=== PATIENT | male | born 1965 | race American Indian/Alaskan Native ===

== ENCOUNTER 2020-12-19 10:54 | Inpatient (IN) | payer MEDICAID, SELFPAY ==
[2020-12-19] VITALS (10 sets, daily range): BP systolic 109–147; BP diastolic 60–92; PULSE 64–89; RESP 11–19; TEMP 36.7–37.1; O2SAT 97–99; BMI 32.5; BMI 30.2
--- NOTE | 2020-12-19 | ECG_ITS ---
Test Reason : CHEST PAIN Blood Pressure : / mmHG Vent. Rate : 079 BPM Atrial Rate : 079 BPM P-R Int : 154 ms QRS Dur : 088 ms QT Int : 382 ms P-R-T Axes : 041 -18 027 degrees QTc Int : 438 ms Normal sinus rhythm Normal ECG No previous ECGs available Referred By: Dangelo Nunez Electronically Signed By:SELAM MARRERO
--- NOTE | ~2020-12-19 | XR_ITS ---
EXAMINATION: XR CHEST CLINICAL INFORMATION: Chest pain COMPARISON: None TECHNIQUE: Frontal view of the chest was obtained. FINDINGS: No significant abnormality is noted involving the heart, lungs, mediastinum, bony thorax or soft tissues. XR/XR chest 1V IMPRESSION: Unremarkable examination.
--- NOTE | 2020-12-19 13:04 | ED.CHESTPAIN ---
HPI - Chest Pain General Chief Complaint: Chest Pain Stated Complaint: chest pain Time Seen by Provider: 12/19/20 13:04 Source: patient Mode of arrival: ambulatory Limitations: no limitations History of Present Illness HPI narrative: over the past few weeks he has noticed throat tightness with exertion. Today he has chest tightness on and off for a few minutes complaint: chest pain and chest heaviness Onset (ago): minute(s) Timing of current episode: episodic Prior episodes: No Onset: during exertion Pain location: left chest Pain radiation: left arm and neck Severity: mild Quality: tightness Relieving factors: rest Exacerbating factors: exertion Associated symptoms: dyspnea Treatment prior to arrival: none Risk Factors Coronary artery disease risk factors: hypertension and family history of CAD before age 50 Related Data Home Medications Medication Instructions Recorded Confirmed No Known Home Meds 12/19/20 12/19/20 Allergies Allergy/AdvReac Type Severity Reaction Status Date / Time No Known Allergies Allergy Verified 12/19/20 11:02 Review of Systems Constitutional: Constitutional: Reports no additional constitutional complaints Eyes: Eyes: Reports no additional eye complaints ENT: Denies dizziness Cardiovascular: Cardiovascular: Reports no additional cardiovascular complaints Respiratory: Respiratory: Reports as per HPI Gastrointestinal: Gastrointestinal: Reports no additional gastrointestinal complaints Musculoskeletal: Musculoskeletal: Reports no additional musculoskeletal complaints Integumentary/Breasts: Skin/Breast: Denies rash Neurologic: Reports system reviewed and no additional complaints, except as documented, Denies dizziness and Denies Sensory deficit (Neuro) Psychiatric: Psychiatric: Denies anxiety PMFSH Past Medical History Medical History Asthma High blood pressure Social History Social History Smoked in Last 30 Days: No Use of substances other than those prescribed or required for medical reasons: No Advance Directives: No Advance Directives Information Provided: No Physical Exam Vital Signs: Vital Signs: Last Vital Signs Temp 98.0 F 12/19/20 10:58 Pulse 80 12/19/20 15:27 Resp 12 12/19/20 15:27 BP 147/84 H 12/19/20 15:27 Pulse Ox 98 12/19/20 15:27 Body Mass Index 30.2 Const: General: healthy appearing Nutritional Appearance: average body habitus Orientation/consciousness: oriented to person and patient oriented x3 Limitations: no limitations HENMT: Head: Yes normal to inspection Ears: external ears normal General nose exam: Normal external nose present Mouth: Normal oral and palatal mucosa present and oropharynx normal Throat: Yes posterior oropharynx normal Eyes: General: appearance normal, both eyes and all related structures Neck: Other: supple Neck: Yes normal visual inspection Chest: Chest palpation & inspection: normal inspection of the chest Resp: Auscultation: clear to auscultation bilaterally Cardio: Jugular venous distension: no JVD Rate: regular rate Rhythm: regular rhythm Heart sounds: S1 normal heart sound present and S2 normal heart sound present GI: Inspection: Yes normal to inspection Palpation (GI): Soft to palpation, nontender and No hepatosplenomegaly present Auscultation: normal bowel sounds : General: Yes no CVA tenderness Back/Spine/Pelvis: Back: no CVA tenderness Skin: General skin exam: no rashes or lesions noted Neuro: General: oriented to person and patient oriented x3 Cranial nerves: Yes CN's II-XII intact bilaterally Motor exam (neuro): 5/5 motor strength present throughout Sensory Exam: No Sensory deficit (Neuro) Extrem: General: Yes normal to inspection Psych: Appearance: grossly normal Course Course Course Narrative: positive troponin with a good story but normal EKG will admit MDM - Chest Pain Lab Data Result diagrams: 12/19/20 13:35 12/19/20 14:18 Labs: Lab Results 12/19/20 12/19/20 12/19/20 Range/Units 13:35 13:35 14:18 WBC 12.8 H (4.8-10.8) X10*3/uL RBC 5.40 (4.60-5.80) X10*6/uL Hgb 15.9 (14.0-18.0) g/dl Hct 46.9 (42-52) % MCV 86.9 (80-98) fL MCH 29.4 (27.0-33.0) pg MCHC 33.9 (31.0-36.0) g/dl RDW 11.9 (11.0-16.0) % Plt Count 212 (160-400) X10*3/uL MPV 10.1 (9.4-12.4) fL Immature Gran % (Auto) 0.4 (0.0-0.4) % Neut % (Auto) 86.0 H (45-73) % Lymph % (Auto) 9.5 L (20-40) % Spink % (Auto) 3.0 (2-11) % Eos % (Auto) 0.8 (0-4) % Baso % (Auto) 0.3 (0-2) % Lymph # (Auto) 1.2 (1.2-4.9) X10*3/uL Spink # (Auto) 0.4 (0.1-1.2) X10*3/uL Eos # (Auto) 0.1 (0.0-0.4) X10*3/uL Baso # (Auto) 0.0 (0.0-0.2) X10*3/uL Abs Immat Gran (auto) 0.05 H (0.00-0.03) X10*3/uL Absolute Neuts (auto) 11.0 H (2.0-8.3) X10*3/uL Absolute Nucleated RBC 0.000 (0.0-0.012) X10*3/uL Nucleated RBC % (auto) 0.0 (0.0-0.2) /100WBC Sodium 140 (135-145) mmol/L Potassium 4.7 (3.3-5.1) mmol/L Chloride 104 (96-108) mmol/L Carbon Dioxide 27 (22-29) mmol/L Anion Gap 14 (12-20) BUN 12 (9-16) mg/dL Creatinine 0.95 (0.5-1.4) mg/dL Estim Creat Clear Calc 104.7 Estimated GFR > 60 Random Glucose 105 (60-115) mg/dL Calcium 9.6 (8.4-10.2) mg/dL Troponin I High Sens 109.1 H (<3.5-35.0) ng/L ECG Data ECG #1: Attestation: I personally reviewed and interpreted this ECG as follows: Interpretation: normal sinus rhythm no st or twave changes Discharge Plan Discharge Clinical Impression: Non-ST elevated myocardial infarction (non-STEMI) Chest pain Qualifiers: Chest pain type: precordial pain Qualified Code(s): R07.2 - Precordial pain Patient Disposition: Admitted As Inpatient
[2020-12-19] MEDS: Nitroglycerin 2 % Oint 1 GM Packet 1 INCH TRANSDERMA (13:36)
[2020-12-19] MEDS: Aspirin Enteric Coated 81 MG TABLET.DR 162 MG PO (13:36)
[2020-12-19 13:40] LABS: MANUAL DIFF FLAG NO
[2020-12-19 13:44] LABS: Basophils Percent Auto 0.3 % (0-2); Eosinophils Absolute Auto 0.1 X10*3/uL (0.0-0.4); Eosinophils Percent Auto 0.8 % (0-4); Hematocrit 46.9 % (42-52); Hemoglobin 15.9 g/dl (14.0-18.0); Imm Gran Abs Auto 0.05 X10*3/uL (0.00-0.03); Imm Gran Pct Auto 0.4 % (0.0-0.4); Lymphocytes Absolute Auto 1.2 X10*3/uL (1.2-4.9); Lymphocytes Percent Auto 9.5 % (20-40); Mean Corpuscular HGB Conc 33.9 g/dl (31.0-36.0); Mean Corpuscular Hemoglobin 29.4 pg (27.0-33.0); Mean Corpuscular Volume 86.9 fL (80-98); Mean Platelet Volume 10.1 fL (9.4-12.4); Monocytes Absolute Auto 0.4 X10*3/uL (0.1-1.2); Platelet Count 212 X10*3/uL (160-400); Red Cell Distribution Width 11.9 % (11.0-16.0); White Blood Count 12.8 X10*3/uL (4.8-10.8)
[2020-12-19 14:21] LABS: Troponin-I High Sensitivity 109.1 ng/L (<3.5-35.0)
--- NOTE | 2020-12-19 14:27 | PC.NURSE ---
PATIENT REPORTS RELIEF OF PAIN AFTER NITRO PATCH APPLIED.
[2020-12-19 14:51] LABS: Anion Gap 14 (12-20); Blood Urea Nitrogen 12 mg/dL (9-16); Calcium 9.6 mg/dL (8.4-10.2); Carbon Dioxide 27 mmol/L (22-29); Chloride 104 mmol/L (96-108); Creatinine Clr Calc Pharmacy 104.7; Estimated Glomerular Filt Rate > 60; Glucose Random 105 mg/dL (60-115); Potassium 4.7 mmol/L (3.3-5.1); Sodium 140 mmol/L (135-145)
[2020-12-19 15:57] LABS: INTERNATIONAL NORM RATIO 1.1 (0.9-1.1); Prothrombin Time 12.9 SEC (10.8-13.0)
[2020-12-19 16:00] LABS: PTT Heparin Drip 34.6 SEC (53-77.9)
[2020-12-19] MEDS: Heparin Sodium,Porcine 5,000 UNIT/ML VIAL 8000 UNIT IVPUSH (16:08)
[2020-12-19] MEDS: 0.9 % Sodium Chloride Flush 3 ML SYRINGE IVFLUSH (16:08)
[2020-12-19] MEDS: Heparin Sodium,Porcine/1/2NS 25,000 UNIT/250 ML IV.SOLN 13.02 UNIT IVCONT (16:13)
[2020-12-19 16:14] LABS: COVID-19 Test Negative (Negative)
[2020-12-19 17:17] LABS: Troponin-I High Sensitivity 239.3 ng/L (<3.5-35.0)
--- NOTE | 2020-12-19 18:50 | HP_ITS ---
DATE OF SERVICE: 12/19/2020 CHIEF COMPLAINT: Chest pain. HISTORY OF PRESENT ILLNESS: 54-year-old gentleman with past medical history significant for hypertension and asthma, presented to [facility] due to symptoms of chest pain, intermittent with exertion associated with shortness of breath, diaphoresis, and near syncope. Pain would relieve with rest. This morning, the patient had another episode of chest pain with radiation to neck, associated with left arm heaviness, sensation of cold and sweaty; therefore, came to the emergency room, where he was given 2 aspirin and nitroglycerin paste, and pain resolved. An EKG showed normal sinus rhythm, normal EKG. However, patient's troponin is elevated at 109. Due to chest pain significant for coronary artery disease and elevated troponin, the patient is now being admitted to [facility] for continued monitoring and treatment. PAST MEDICAL HISTORY: Significant for hypertension and diabetes. PAST SURGICAL HISTORY: None. FAMILY HISTORY: Father had coronary artery disease, not aware of what age. Mother has stomach cancer. No other family member with premature coronary artery disease. SOCIAL HISTORY: The patient lives at home with his spouse. 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 Denies smoking or alcohol abuse. MEDICATIONS: The patient is not taking any medications. He has not seen a PCP since 2019. ALLERGIES: NO KNOWN DRUG ALLERGIES. PHYSICAL EXAMINATION: GENERAL: The patient is resting comfortably. VITALS: BP 147/84 with a pulse of 80, respiratory rate 12, O2 saturation 98% on room air. HEENT: Pupils equal, round, and reactive to light and accommodation. Extraocular muscles intact. NECK: Supple. No JVD. LUNGS: Clear to auscultation. HEART: Regular rate and rhythm with no murmur, regurg, or gallop. ABDOMEN: Soft, nontender. EXTREMITIES: Without edema. NEUROLOGIC: Nonfocal. PSYCH: Appropriate affect. SKIN: No rashes. LABORATORY DATA: Sodium 140, potassium 4.7, creatinine of 0.95, [place] [address], hematocrit of 46.9. Chest x-ray showed no acute infiltrate. EKG showed normal sinus rhythm. No previous EKGs for comparison. ASSESSMENT AND PLAN: This is a 54-year-old gentleman, who presented to [facility] with 2 days of intermittent chest pain with exertion associated with shortness of breath, diaphoresis, near syncope, and today presented with chest pain with radiation to left arm with heaviness, sensation of cold. The patient's chest pain resolved with aspirin and nitroglycerin in the ER. 1. Chest pain. chest pain is typical for coronary artery disease with elevated troponin consistent with [id number] elevation myocardial infarction, patient will be placed on IV heparin drip, aspirin, beta-blockers, and statin, will obtain lipid profile and echocardiogram, will obtain cardiology consultation for further evaluation and treatment. 2. Hypertension. Patient's blood pressure is elevated. The patient has not taken medication in the last couple of years. Will be placed on metoprolol and follow blood pressure closely. 3. Code status, full code. 4. Deep vein thrombosis prophylaxis, patient on heparin. MD BLANKA Wells/LISSETT / [id number] MTDD
--- NOTE | 2020-12-19 19:03 | PC.NURSE ---
Received report from ALFREDO Lehman. Fallon attempted to call [facility] to give RN to RN report, but room isnt ready
--- NOTE | 2020-12-19 20:10 | PC.NURSE ---
Report given to ALFREDO Salomon. Preparing for transfer to [facility] room 454.
[2020-12-19 20:52] LABS: Troponin-I High Sensitivity 467.1 ng/L (<3.5-35.0)
[2020-12-19] MEDS: Metoprolol Tartrate 25 MG TABLET PO (21:25)
[2020-12-19] MEDS: Atorvastatin Calcium 80 MG TABLET PO (21:25)
[2020-12-19 22:44] LABS: PTT Heparin Drip > 200.0 SEC (53-77.9)
[2020-12-20] MEDS: 0.9 % Sodium Chloride Flush 3 ML SYRINGE IVFLUSH (00:14)
[2020-12-20 00:15] LABS: PTT Heparin Drip > 200.0 SEC (53-77.9)
[2020-12-20 00:26] LABS: Anion Gap 13 (12-20); Blood Urea Nitrogen 13 mg/dL (9-16); Calcium 9.2 mg/dL (8.4-10.2); Carbon Dioxide 21 mmol/L (22-29); Chloride 108 mmol/L (96-108); Estimated Glomerular Filt Rate > 60; Glucose Random 132 mg/dL (60-115); Magnesium 2.3 mg/dL (1.6-2.6); Sodium 138 mmol/L (135-145)
[2020-12-20 02:09] LABS: PTT Heparin Drip 86.4 SEC (53-77.9)
[2020-12-20 03:37] VITALS: BP 110/63; PULSE 66; RESP 18; TEMP 37.1; O2SAT 98
[2020-12-20 06:50] LABS: Cholesterol 192 mg/dL; HDL Cholesterol 41 mg/dL; LDL Cholesterol Calculated 139 mg/dl; Triglycerides 62 mg/dL
[2020-12-20 07:45] VITALS: BP 131/74; PULSE 69; RESP 18; TEMP 36.3; O2SAT 97
[2020-12-20 08:03] VITALS: BP 131/74; PULSE 69
[2020-12-20] MEDS: Metoprolol Tartrate 25 MG TABLET PO (08:03)
[2020-12-20] MEDS: Aspirin Enteric Coated 81 MG TABLET.DR PO (08:03)
[2020-12-20 08:48] LABS: PTT Heparin Drip 93.3 SEC (53-77.9)
--- NOTE | 2020-12-20 09:42 | MHC.CM.PN ---
CM met with Patient at bedside. Patient indicates that he is being transferred to [facility] today for a Cardiac Cath. Patient lives in an apartment with his Girlfriend and he is functionally independent. Patient's new PCP is Dr. Zo Solis and 1st PCP appointment is on 01/22/21.CM has initiated and will follow for dc planning.
--- NOTE | 2020-12-20 10:10 | P.CONCA_ITS ---
History of Present Illness History of Present Illness Date of Service: 12/20/20 Consult reason: chest pain and troponin elevation Chief complaint: chest pain,nstemi Narrative: This is a cardiology consultation regarding chest pain and elevated troponins. Patient does not have any known coronary disease or myocardial infarction or in fact any other cardiac issues. He states that he has been having chest pains for the last 3-4 days time. Initially to happen about 4 days or so ago. At that time he was having a discomfort in the neck. Then it got better for couple days. Then he started having again some chest discomfort more so in the left side of the chest. He was also having discomfort in the left arm and neck area. He was sweaty. He was also having pres-syncopal episode. This led to the hospitalization and he has been found to have elevated troponins suggestive of non ST elevation myocardial infarction. He denies any history of smoking or diabetes or hypertension. Review of Systems Review of Systems: Yes all other systems are reviewed and are negative Cardiovascular: Cardiovascular: Reports as per HPI, Reports no additional cardiovascular complaints, Denies acrocyanosis, Denies cool extremities, Denies painful fingertips, Denies chest pain, Denies chest pain at rest, Denies diaphoresis, Denies syncope, Denies irregular heart rhythm, Denies claudication, Denies leg edema, Denies lightheadedness, Denies palpitations and Denies dyspnea Respiratory: Respiratory: Denies dyspnea Neurologic: Denies syncope Endocrine: Endocrine: Denies palpitations PMF Past Medical History Medical History Asthma High blood pressure Social History Social History Household Members: Significant Other Housing: Apartment Do you presently have visiting nurse or other home services: No Smoking Status: Never smoker Smoked in Last 30 Days: No Second Hand Smoke Exposure: No Use of substances other than those prescribed or required for medical reasons: No Currently Displaying Signs/Symptoms of Drug Intoxication Withdrawal: No Have you been hit, kicked, punched, or otherwise hurt by someone within the past year? If so, by whom?: No Do you feel safe in your current relationship?: Yes Is there a partner from a previous relationship who is making you feel unsafe now?: No Are you made to feel afraid or neglected: No Advance Directives: No Advance Directives Information Provided: No Do you have thoughts of harming others: None Do you have a plan to hurt others: No Plan Nutrition Risks: No Nutritional Risk service: No Current occupational status: employed Meds Allergies Allergy/AdvReac Type Severity Reaction Status Date / Time No Known Allergies Allergy Verified 12/19/20 11:02 Active Medications: Current Medications Generic Name Dose Route Start Last Admin Trade Name Makenzie PRN Reason Stop Dose Admin Acetaminophen 650 mg 12/19/20 15:37 Acetaminophen 325 Mg Tablet PO Q6H PRN Pain, Mild (Pain Scale 1-3) Aspirin 81 mg 12/20/20 09:00 12/20/20 08:03 Aspirin Enteric Coated 81 Mg Tablet.Dr PO 81 mg DAILY KYLER Administration Atorvastatin Calcium 80 mg 12/19/20 21:00 12/19/20 21:25 Atorvastatin Calcium 80 Mg Tablet PO 80 mg BEDTIME KYLER Administration Heparin Sodium/Sodium Chloride 25,000 unit in 250 mls @ 0 mls/hr 12/19/20 15:45 12/20/20 08:55 IVCONT 0 units/kg/hr .Q0M KYLER 0 mls/hr Titration Protocol Per Protocol Metoprolol Tartrate 25 mg 12/19/20 21:00 12/20/20 08:03 Metoprolol Tartrate 25 Mg Tablet PO 25 mg BID KYLER Administration Protocol Nitroglycerin 0.4 mg 12/19/20 15:37 Nitroglycerin 0.4 Mg Tab.Subl SUBLINGUAL Q5M PRN Chest Pain Ondansetron HCl 4 mg 12/19/20 15:37 Ondansetron Hcl 4 Mg/2 Ml Vial IVPUSH Q8H PRN Nausea and Vomiting Sodium Chloride 3 ml 12/19/20 16:00 12/20/20 07:11 0.9 % Sodium Chloride Flush 3 Ml Syringe IVFLUSH Not Given QSHIFT [facility] Home Medications Medication Instructions Recorded Confirmed Last Taken Type No Known Home Meds 12/19/20 12/19/20 Unknown History Physical Exam Vital Signs: Vital Signs: Last Vital Signs Temp 97.4 F 12/20/20 07:45 Pulse 69 12/20/20 08:03 Resp 18 12/20/20 07:45 BP 131/74 12/20/20 08:03 Pulse Ox 97 12/20/20 07:45 Body Mass Index 30.2 Const: General: cooperative, comfortable and no acute distress Orientation/consciousness: patient oriented x3 HENMT: Other: Unremarkable Neck: Neck: Yes normal visual inspection Chest: Chest palpation & inspection: normal inspection of the chest Resp: Auscultation: clear to auscultation bilaterally, no crackles and no wheezes Cardio: Jugular venous distension: no JVD Palpation: normal PMI Heart sounds: S1 normal heart sound present, S2 normal heart sound present, no gallops, no murmurs and no rubs GI: Palpation (GI): Soft to palpation Back/Spine/Pelvis: Other: unremarkable Skin: General skin exam: no rashes or lesions noted Neuro: General: patient oriented x3 Extrem: General: Yes no clubbing, cyanosis or edema Psych: Mental Status: mental status grossly normal Results Labs and Meds Result diagrams: 12/19/20 13:35 12/19/20 23:39 Lab results: Laboratory Results - last 24 hr 12/19/20 12/19/20 12/19/20 13:35 13:35 14:18 WBC 12.8 H RBC 5.40 Hgb 15.9 Hct 46.9 MCV 86.9 MCH 29.4 MCHC 33.9 RDW 11.9 Plt Count 212 MPV 10.1 Immature Gran % (Auto) 0.4 Neut % (Auto) 86.0 H Lymph % (Auto) 9.5 L Harlan % (Auto) 3.0 Eos % (Auto) 0.8 Baso % (Auto) 0.3 Lymph # (Auto) 1.2 Harlan # (Auto) 0.4 Eos # (Auto) 0.1 Baso # (Auto) 0.0 Abs Immat Gran (auto) 0.05 H Absolute Neuts (auto) 11.0 H Absolute Nucleated RBC 0.000 Nucleated RBC % (auto) 0.0 PT INR PTT (Heparin Protocol) Sodium 140 Potassium 4.7 Chloride 104 Carbon Dioxide 27 Anion Gap 14 BUN 12 Creatinine 0.95 Estim Creat Clear Calc 104.7 Estimated GFR > 60 Random Glucose 105 Calcium 9.6 Magnesium Troponin I High Sens 109.1 H Triglycerides Cholesterol LDL Cholesterol, Calc HDL Cholesterol COVID-19 (GIA) COVID-19 Clin Com 12/19/20 12/19/20 12/19/20 15:40 15:41 16:26 WBC RBC Hgb Hct MCV MCH MCHC RDW Plt Count MPV Immature Gran % (Auto) Neut % (Auto) Lymph % (Auto) Harlan % (Auto) Eos % (Auto) Baso % (Auto) Lymph # (Auto) Harlan # (Auto) Eos # (Auto) Baso # (Auto) Abs Immat Gran (auto) Absolute Neuts (auto) Absolute Nucleated RBC Nucleated RBC % (auto) PT 12.9 INR 1.1 PTT (Heparin Protocol) 34.6 L Sodium Potassium Chloride Carbon Dioxide Anion Gap BUN Creatinine Estim Creat Clear Calc Estimated GFR Random Glucose Calcium Magnesium Troponin I High Sens 239.3 H D Triglycerides Cholesterol LDL Cholesterol, Calc HDL Cholesterol COVID-19 (GIA) Negative COVID-19 Clin Com See Note 12/19/20 12/19/20 12/19/20 20:14 22:10 23:39 WBC RBC Hgb Hct MCV MCH MCHC RDW Plt Count MPV Immature Gran % (Auto) Neut % (Auto) Lymph % (Auto) Harlan % (Auto) Eos % (Auto) Baso % (Auto) Lymph # (Auto) Harlan # (Auto) Eos # (Auto) Baso # (Auto) Abs Immat Gran (auto) Absolute Neuts (auto) Absolute Nucleated RBC Nucleated RBC % (auto) PT INR PTT (Heparin Protocol) > 200.0 H* D Sodium 138 Potassium 4.0 Chloride 108 Carbon Dioxide 21 L Anion Gap 13 BUN 13 Creatinine 0.89 Estim Creat Clear Calc 108.0 Estimated GFR > 60 Random Glucose 132 H Calcium 9.2 Magnesium 2.3 Troponin I High Sens 467.1 H D Triglycerides Cholesterol LDL Cholesterol, Calc HDL Cholesterol COVID-19 (GIA) COVID-[employer] ([employer]) 12/19/20 12/20/20 12/20/20 23:39 00:36 01:39 WBC RBC Hgb Hct MCV MCH MCHC RDW Plt Count MPV Immature Gran % (Auto) Neut % (Auto) Lymph % (Auto) Harlan % (Auto) Eos % (Auto) Baso % (Auto) Lymph # (Auto) Harlan # (Auto) Eos # (Auto) Baso # (Auto) Abs Immat Gran (auto) Absolute Neuts (auto) Absolute Nucleated RBC Nucleated RBC % (auto) PT INR PTT (Heparin Protocol) > 200.0 H* 149.1 H* D 86.4 H D Sodium Potassium Chloride Carbon Dioxide Anion Gap BUN Creatinine Estim Creat Clear Calc Estimated GFR Random Glucose Calcium Magnesium Troponin I High Sens Triglycerides Cholesterol LDL Cholesterol, Calc HDL Cholesterol COVID-19 (GIA) COVID-19 [employer] Com 12/20/20 12/20/20 05:33 08:10 WBC RBC Hgb Hct MCV MCH MCHC RDW Plt Count MPV Immature Gran % (Auto) Neut % (Auto) Lymph % (Auto) Harlan % (Auto) Eos % (Auto) Baso % (Auto) Lymph # (Auto) Harlan # (Auto) Eos # (Auto) Baso # (Auto) Abs Immat Gran (auto) Absolute Neuts (auto) Absolute Nucleated RBC Nucleated RBC % (auto) PT INR PTT (Heparin Protocol) 93.3 H Sodium Potassium Chloride Carbon Dioxide Anion Gap BUN Creatinine Estim Creat Clear Calc Estimated GFR Random Glucose Calcium Magnesium Troponin I High Sens Triglycerides 62 Cholesterol 192 LDL Cholesterol, Calc 139 HDL Cholesterol 41 COVID-19 (GIA) COVID-19 Clin Com ECG Attestation: I personally reviewed and interpreted this ECG as follows: Interpretation: EKG today shows sinus rhythm at 79/Min; no significant ST-T changes and otherwise unremarkable. Imaging Radiologist's impression: Impressions Chest X-Ray 12/19/20 15:19 IMPRESSION: Unremarkable examination. Assessment and Plan (1) Non-ST elevated myocardial infarction (non-STEMI): Status: Acute His symptoms are typical of coronary etiology/angina. EKG is not showing any clear ischemic changes. However high sensitivity troponins are abnormal. Initial level was 109 followed by 239 followed by 467. We will treat him as acute NSTEMI. Continue with aspirin, beta-blockers and high-dose statins. Echocardiogram today. We will transfer to [facility] for cardiac catheterization tomorrow. Discussed with the patient regarding the above with a bilingual interpreter and he understands and agrees with the plan.
--- NOTE | 2020-12-20 10:25 | P.DS_ITS ---
DS: Providers Provider Date of Service: 12/20/20 Date of admission: 12/19/20 15:37 Primary care physician: Juanita Walden MD Consults: 12/19/20 15:39 Consult to Cardiology Routine Consulting Provider: Carlos Gonsalez Reason for consultation: chest pain DS: Medications Discharge Medications Home Medications: Home Medications Medication Instructions Recorded Confirmed No Known Home Meds 12/19/20 12/19/20 DS: Summary Hospital Course Hospital Course: History of presenting illness 54-year-old gentleman with past medical history significant for hypertension and asthma, presented to [facility] due to symptoms of chest pain, intermittent with exertion associated with shortness of breath, diaphoresis, and near syncope, symptoms relieve with rest since last 4 days,this morning, patient had another episode of chest pain with radiation to neck, associated with left arm heaviness, sensation of cold and sweaty; therefore, came to the emergency room, where he was given 2 aspirin and nitroglycerin paste, and pain resolved. An EKG showed normal sinus rhythm, no ischemic change,However, patient's troponin is elevated at 109. Due to chest pain typical for coronary artery disease and elevated troponin, the patient is now being admitted to [facility] for continued monitoring and treatment. Patient has not seen a physician in last couple years and has not received treatment for hypertension. PAST MEDICAL HISTORY: Significant for hypertension and diabetes. Hospital course NSTEMI Since hospitalization patient remains chest pain-free,high sensitivity troponin continue to trend up from 109 to 239 to 467 , EKG shows no ischemia, LDL 139,T.Chol 192, patient with no prior history of coronary artery disease, will continue treatment with IV heparin, metoprolol 25 b.i.d., statin and aspirin, patient is now being transferred to [facility] for cardiac catheterization echo done report pending. Time Spent with Patient Time attestation: Total time spent providing and/or coordinating discharge services: Discharge coordination time: Greater than 30 minutes Physical Exam Vital Signs: Vital Signs: Last Vital Signs Temp 97.4 F 12/20/20 07:45 Pulse 69 12/20/20 08:03 Resp 18 12/20/20 07:45 BP 131/74 12/20/20 08:03 Pulse Ox 97 12/20/20 07:45 Body Mass Index 30.2 General no acute distress. Neck no JVD. CVS regular rate rhythm, Respiratory lungs clear to auscultation, no respiratory distress, no wheeze, no rhonchi. Gastrointestinal abdomen soft, nontender, bowel sounds audible, no guarding , no rigidity. Extremities no edema. Neuro nonfocal. Psych appropriate Skin no rash DS: Data Data Completed and Pending Labs on day of discharge: Laboratory Results - last 24 hr 12/19/20 12/19/20 12/19/20 13:35 13:35 14:18 WBC 12.8 H RBC 5.40 Hgb 15.9 Hct 46.9 MCV 86.9 MCH 29.4 MCHC 33.9 RDW 11.9 Plt Count 212 MPV 10.1 Immature Gran % (Auto) 0.4 Neut % (Auto) 86.0 H Lymph % (Auto) 9.5 L [place] % (Auto) 3.0 Eos % (Auto) 0.8 Baso % (Auto) 0.3 Lymph # (Auto) 1.2 [place] # (Auto) 0.4 Eos # (Auto) 0.1 Baso # (Auto) 0.0 Abs Immat Gran (auto) 0.05 H Absolute Neuts (auto) 11.0 H Absolute Nucleated RBC 0.000 Nucleated RBC % (auto) 0.0 PT INR PTT (Heparin Protocol) Sodium 140 Potassium 4.7 Chloride 104 Carbon Dioxide 27 Anion Gap 14 BUN 12 Creatinine 0.95 Estim Creat Clear Calc 104.7 Estimated GFR > 60 Random Glucose 105 Calcium 9.6 Magnesium Troponin I High Sens 109.1 H Triglycerides Cholesterol LDL Cholesterol, Calc HDL Cholesterol COVID-19 (GIA) COVID-19 Clin Com 12/19/20 12/19/20 12/19/20 15:40 15:41 16:26 WBC RBC Hgb Hct MCV MCH MCHC RDW Plt Count MPV Immature Gran % (Auto) Neut % (Auto) Lymph % (Auto) [place] % (Auto) Eos % (Auto) Baso % (Auto) Lymph # (Auto) [place] # (Auto) Eos # (Auto) Baso # (Auto) Abs Immat Gran (auto) Absolute Neuts (auto) Absolute Nucleated RBC Nucleated RBC % (auto) PT 12.9 INR 1.1 PTT (Heparin Protocol) 34.6 L Sodium Potassium Chloride Carbon Dioxide Anion Gap BUN Creatinine Estim Creat Clear Calc Estimated GFR Random Glucose Calcium Magnesium Troponin I High Sens 239.3 H D Triglycerides Cholesterol LDL Cholesterol, Calc HDL Cholesterol COVID-19 (GIA) Negative COVID-19 [employer] Physical See Note 12/19/20 12/19/20 12/19/20 20:14 22:10 23:39 WBC RBC Hgb Hct MCV MCH MCHC RDW Plt Count MPV Immature Gran % (Auto) Neut % (Auto) Lymph % (Auto) [place] % (Auto) Eos % (Auto) Baso % (Auto) Lymph # (Auto) [place] # (Auto) Eos # (Auto) Baso # (Auto) Abs Immat Gran (auto) Absolute Neuts (auto) Absolute Nucleated RBC Nucleated RBC % (auto) PT INR PTT (Heparin Protocol) > 200.0 H* D Sodium 138 Potassium 4.0 Chloride 108 Carbon Dioxide 21 L Anion Gap 13 BUN 13 Creatinine 0.89 Estim Creat Clear Calc 108.0 Estimated GFR > 60 Random Glucose 132 H Calcium 9.2 Magnesium 2.3 Troponin I High Sens 467.1 H D Triglycerides Cholesterol LDL Cholesterol, Calc HDL Cholesterol COVID-19 (GIA) [email or web address] 12/19/20 12/20/20 12/20/20 23:39 00:36 01:39 WBC RBC Hgb Hct MCV MCH MCHC RDW Plt Count MPV Immature Gran % (Auto) Neut % (Auto) Lymph % (Auto) [place] % (Auto) Eos % (Auto) Baso % (Auto) Lymph # (Auto) [place] # (Auto) Eos # (Auto) Baso # (Auto) Abs Immat Gran (auto) Absolute Neuts (auto) Absolute Nucleated RBC Nucleated RBC % (auto) PT INR PTT (Heparin Protocol) > 200.0 H* 149.1 H* D 86.4 H D Sodium Potassium Chloride Carbon Dioxide Anion Gap BUN Creatinine Estim Creat Clear Calc Estimated GFR Random Glucose Calcium Magnesium Troponin I High Sens Triglycerides Cholesterol LDL Cholesterol, Calc HDL Cholesterol COVID-19 (GIA) [employer] 12/20/20 12/20/20 05:33 08:10 WBC RBC Hgb Hct MCV MCH MCHC RDW Plt Count MPV Immature Gran % (Auto) Neut % (Auto) Lymph % (Auto) [place] % (Auto) Eos % (Auto) Baso % (Auto) Lymph # (Auto) [place] # (Auto) Eos # (Auto) Baso # (Auto) Abs Immat Gran (auto) Absolute Neuts (auto) Absolute Nucleated RBC Nucleated RBC % (auto) PT INR PTT (Heparin Protocol) 93.3 H Sodium Potassium Chloride Carbon Dioxide Anion Gap BUN Creatinine Estim Creat Clear Calc Estimated GFR Random Glucose Calcium Magnesium Troponin I High Sens Triglycerides 62 Cholesterol 192 LDL Cholesterol, Calc 139 HDL Cholesterol 41 COVID-19 (GIA) COVID-19 Clin Com Discharge Plan Discharge Patient Disposition: Xfer Acute Care Hospital Discharge Diagnosis: Nstemi Referrals: [facility] [Outside] - 1 Week Juanita Willard MD [Primary Care Provider] - 1 Week Discharge Medications: New atorvastatin 80 mg Tablet 80 mg PO BEDTIME Qty: 30 RF: 0 acetaminophen 325 mg Tablet 650 mg PO Q6H PRN (Reason: Pain, Mild (Pain Scale 1-3)) Qty: 30 RF: 0 aspirin 81 mg Tablet,Delayed Release (Dr/Ec) 81 mg PO DAILY Qty: 30 RF: 0 nitroglycerin [Nitrostat] 0.4 mg Tablet, Sublingual 0.4 mg sublingual Q5M PRN (Reason: Chest Pain) Qty: 30 RF: 0 metoprolol tartrate 25 mg Tablet 25 mg PO BID Qty: 30 RF: 0 heparin(porcine) in 0.45% NaCl 25,000 unit/250 mL Parenteral Solution 25,000 unit continuous IV infusion .Q0M Qty: 1 RF: 0 ondansetron HCl (PF) 4 mg/2 mL Solution 4 mg IVPUSH Q8H PRN (Reason: Nausea And Vomiting) Qty: 1 RF: 0 Discharge Orders: Discharge Order (Routine); Ordered 12/20/20 Ordered By: Nabeel Ennis Diet: low fat, low cholesterol Activity on Discharge: bedrest Stand Alone Forms: Patient Portal Discharge page Care Plan Goals: To [facility] for cardiac catheterization Health Concerns: Non ST-elevation OR continue heparin, aspirin, beta-jayden and statin Plan of Treatment: Outpatient follow-up with Cardiology and primary care physician Assessment: see dc summary
[2020-12-20 11:24] VITALS: BP 122/76; PULSE 73; RESP 17; TEMP 36.4; O2SAT 97
[2020-12-20 15:35] LABS: PTT Heparin Drip 47.8 SEC (53-77.9)
--- NOTE | 2020-12-20 15:53 | CA_ITS ---
Transthoracic Echocardiogram Patient (Last, First, Middle): Jonathon Roman, Gender: Male Date of : 1965 Age: 54 Procedure Date: 12/20/2020 Procedure Type: Transthoracic [place] [facility] [place]: 175.26 cm Weight: 92.99 kg BSA: 2.09 m2 Heart Rate: bpm BP: 110 / 63 mmHg Casting Chipper: YASH Referring MD: Nabeel Ennis MD Symptoms: chest pain Study Quality: Fair/contrast ECG Rhythm: Sinus Conclusions: - The left ventricular systolic function is normal. The visually estimated ejection fraction is between 60-65%. - No obvious valvular pathology seen on this study. Findings Procedure Information Contrast agent, definity, is being given per protocol without apparent complications. Left Ventricle Normal left ventricular cavity size. There is normal left ventricular wall thickness. The left ventricular systolic function is normal. The visually estimated ejection fraction is between 60-65%. There is no evidence of regional wall motion abnormalities. Diastolic function is normal for age. Right Ventricle Normal right ventricular cavity size and systolic function. Atria Both atria are normal in size. Aortic Valve There is a normal trileaflet aortic valve. There is no aortic valve stenosis. There is no aortic valve regurgitation. Mitral Valve The mitral valve appears normal. There is trace mitral valve regurgitation. There is no mitral valve stenosis. Pulmonic Valve The pulmonic valve was not well visualized. Tricuspid Valve Normal tricuspid valve structure. There is mild tricuspid valve regurgitation. The pulmonary artery systolic pressure is normal. Great Vessels The aortic annulus, sinuses of valsalva, and asc aorta are normal in size. Venous The inferior vena cava is normal in size and collapses greater than 50% with inspiration. Pericardium/Pleural There is no evidence of pericardial effusion. Prior Study Comparison No prior study available for comparison. Recommendations, Care & Conclusions No obvious valvular pathology seen on this study. Measurements 2D Linear Measurements IVSd: 0.99 0.6-0.9/0.6-1.0 cm LVIDd: 3.52 3.9-5.3/4.2-5.9 cm LVIDd Index: 1.68 2.4-3.2/2.2-3.1 cm/m2 LVIDs: 2.24 2.0-3.6 cm LVPWd: 0.96 0.7-1.1 cm Ao Root: 3.40 2.1-3.5 cm LA Diam: 3.20 2.7-3.8/3.0-4.0 cm LAIDs Index: 1.53 1.5-2.3 cm/m2 LV Mass: 124.39 67-162/88-224 g LV Mass Index: 59.52 43-95/49-115 g/m2 LVOT Diam: 2.30 3.0+(-)1.3 cm 2D Systolic Function EF 4C: 64.20 >55% EF 2C: 64.00 >55% EF BiP: 63.10 >55% Mitral Valve MV Pk E: 0.61 MV PK A: 0.66 MV Decel Time: 261.00 E/A: 0.90 E'Lateral: 12.50 E'Medial: 9.57 E/E' Med: 6.40 E/E' Lat: 4.90 PHT: 76.00 MVA PHT: 2.89 Decel Billings: 2.35 Aortic Valve AoV Pk Kurt: 1.15 AoV Mn Kurt: 0.85 AoV VTI: 0.21 AoV Pk Grad: 5.00 Aov Mn Grad: 3.00 RANDI Cont.VTI: 3.15 LVOT LVOT Pk Kurt: 0.91 LVOT Mn Kurt: 0.53 LVOT VTI: 0.16 LVOT Pk Grad: 3.00 LVOT Mn Grad: 1.00 LVOT Diam: 2.30 LVOT Area: 4.15 Diastolic Function MV Pk E: 0.61 MV Pk A: 0.66 E/A: 0.90 E'Medial: 9.57 E/E' Med: 6.40 E' Laterial: 12.50 E/E' Lat: 4.90 Tricuspid Valve TR Pk Kurt: 2.12 TR Pk Grad: 18.00 RA Press: 3.00 RVSP: 21.00 Great Vessels Aorta Ao Root-2D: 3.40 2.0-3.7 cm Ao Asc: 2.80 2.1-3.4 cm Ao Arch: 3.00 Updated in Other Vendor System with Status of Final Carlos Gonsalez MD electronically signed on 12/20/2020 12:28:35 PM with status of Final
[2020-12-24 03:31] LABS: PTT Heparin Drip 149.1 SEC (53-77.9)
== END 2020-12-20 15:13 | disposition short-term general hospital (02) | DRG 190 ==
LOC: HO.ED 14:30 → HO.EDOVER 15:59 → HO.IMC 18:52
PROVIDERS: Internal Medicine; Admitting Provider Hospitalist; Emergency Provider Emergency Medicine; PCP Internal Medicine; Visit Provider Hospitalist
DX: I21.4 Non-ST elevation (NSTEMI) myocardial infarction (principal); I10 Essential (primary) hypertension; Z20.822 Contact with and (suspected) exposure to COVID-19; Z79.82 Long term (current) use of aspirin; Z79.899 Other long term (current) drug therapy
CPT/HCPCS: 36415; 71045; 80048; 80061; 83735; 84484; 85025; 85610; 85730; 87635; 93005; 93306; 96374; 99285; Q9957

== ENCOUNTER → 2021-01-08 11:47 | Outpatient (BNVA) | payer MEDICAID, SELFPAY | PROVIDERS: PCP Internal Medicine; Visit Provider Nurse Practitioner Family ==

== ENCOUNTER → 2021-04-10 14:43 | Outpatient (BNVA) | payer MEDICAID, SELFPAY | PROVIDERS: PCP Family Medicine; Visit Provider Internal Medicine | DX: I21.4 Non-ST elevation (NSTEMI) myocardial infarction (principal); I25.10 Atherosclerotic heart disease of native coronary artery without angina pectoris; E78.5 Hyperlipidemia, unspecified; I10 Essential (primary) hypertension | CPT/HCPCS: 99212 ==

== ENCOUNTER 2021-04-11 06:43 | Outpatient (REF) | payer MEDICAID, SELFPAY ==
[2021-04-11 07:46] LABS: Alanine Aminotransferase 60 U/L (0-40); Aspartate Amino Transferase 34 U/L (5-37); Cholesterol 134 mg/dL; HDL Cholesterol 44 mg/dL; LDL Cholesterol Calculated 78 mg/dl; Triglycerides 63 mg/dL
== END 2021-04-11 06:44 | disposition home or self-care (01) ==
LOC: HO.LAB 06:43
PROVIDERS: PCP Family Medicine; Visit Provider Nurse Practitioner Family
DX: E78.5 Hyperlipidemia, unspecified (principal)
CPT/HCPCS: 36415; 80061; 84450; 84460

== ENCOUNTER → 2021-05-13 13:48 | Outpatient (REF) | payer MEDICAID, SELFPAY | LOC: HO.SL 13:48 | PROVIDERS: PCP Family Medicine; Visit Provider Family Medicine | DX: G47.33 Obstructive sleep apnea (adult) (pediatric) (principal); R06.83 Snoring; R40.0 Somnolence; G47.30 Sleep apnea, unspecified | CPT/HCPCS: 95806 ==

== ENCOUNTER → 2021-07-08 08:04 | Outpatient (BNVA) | payer MEDICAID, SELFPAY | PROVIDERS: PCP Family Medicine; Referring Provider Family Medicine; Visit Provider Internal Medicine | DX: I25.10 Atherosclerotic heart disease of native coronary artery without angina pectoris (principal); I25.2 Old myocardial infarction; I10 Essential (primary) hypertension; E78.5 Hyperlipidemia, unspecified; R07.2 Precordial pain | CPT/HCPCS: 93005; 99212 ==

== ENCOUNTER → 2021-07-10 08:38 | Outpatient (REF) | payer MEDICAID, SELFPAY ==
--- NOTE | ~2021-07-10 | NM_ITS ---
Exercise Myocardial perfusion study Indication: Precordial pain to evaluate for myocardial ischemia Technique: The patient was brought in for an exercise perfusion study on 07/10/2021. Patient performed exercise as per Jos protocol and was injected 35 mCi of sestamibi was given intravenously one target HR was achieved. Images were obtained using the SPECT gamma camera interlaced with the gating device. Images were obtained in supine position. Resting perfusion study was performed on 07/15/2021. Patient was administered 35 mCi of sestamibi intravenously at rest. Images were then obtained in supine position. Images obtained with and without CT attenuation. Total DLP 93 mGy-cm. Images were processed with the software and compared side to side in short axis, horizontal long axis and vertical long axis views. Findings: The stress perfusion study showed non attenuated images show mildly reduced uptake in the basal inferior and basal inferolateral wall of the LV myocardium. Remainder of the LV myocardium is normally perfused. Attenuation corrected images show some thinning of the apical inferolateral wall of the LV myocardium otherwise normal uptake in all segments. The gated study shows normal LV systolic function with calculated LVEF of 64%. LV cavity is normal in in size. The gated study shows normal systolic wall thickening and contraction of all segments. There is no transient ischemic dilation. Resting study shows no change in perfusion pattern compared to stress perfusion study. Gating at rest reveals normal systolic wall motion with ejection fraction at 59%. The findings are consistent with normal myocardial perfusion. NM/NM cardiolite stress test Impression: 1. Normal myocardial perfusion 2. Gated LVEF is 64% 3. Transient ischemic dilatation not present Stress EKG is negative for ischemia
--- NOTE | 2021-07-10 08:40 | CA_ITS ---
Acquisition Time: 2021-07-10 10:01:18 Total Exercise Time: 00:05:01 Test Indications: Chest Pain Medications: ASA METOPROLOL ATORVASTATIN LISINOPRIL/HCTZ OMEPRAZOLE Protocol: JOSE ANTONIO Max HR: 150 BPM 90% of Pred: 166 BPM Max BP: 138/062 mmHG Max Work Load: 7.0 METS Exercise stress test with exercise 5 min 1 sec of Joes Antonio protocol with fatigue and mild sob, no chest discomfort, without arrythmia, with normotensive response to exercise, without EKG changes meeting criteria for ischemia. Nuclear images pending. Test reviewed with Dr Simpson. Referred By: Carlos Gonsalez Overread By: NATHEN GAY
== END ==
LOC: HO.CARD 08:38
PROVIDERS: Visit Provider Internal Medicine
DX: R07.2 Precordial pain (principal)
CPT/HCPCS: 78452; 93017; A9500

== ENCOUNTER → 2021-08-07 12:58 | Outpatient (BNVA) | payer MEDICAID, SELFPAY | PROVIDERS: PCP Family Medicine; Referring Provider Family Medicine; Visit Provider Nurse Practitioner Family | DX: I25.10 Atherosclerotic heart disease of native coronary artery without angina pectoris (principal); I10 Essential (primary) hypertension; R07.2 Precordial pain; Z95.5 Presence of coronary angioplasty implant and graft; Z98.890 Other specified postprocedural states | CPT/HCPCS: 99212 ==

== ENCOUNTER → 2021-10-08 14:43 | Outpatient (BNVA) | payer MEDICAID, SELFPAY | PROVIDERS: PCP Family Medicine; Referring Provider Family Medicine; Visit Provider Internal Medicine | DX: I25.10 Atherosclerotic heart disease of native coronary artery without angina pectoris (principal); I10 Essential (primary) hypertension; E78.5 Hyperlipidemia, unspecified; I25.2 Old myocardial infarction; Z79.82 Long term (current) use of aspirin | CPT/HCPCS: 99212 ==

== ENCOUNTER 2021-11-15 06:46 | Outpatient (REF) | payer MEDICAID, SELFPAY ==
[2021-11-15 07:26] LABS: Hematocrit 44.7 % (42.0-52.0); Hemoglobin 15.2 g/dl (14.0-18.0); Mean Corpuscular Hemoglobin 30.2 pg (27.0-33.0); Mean Corpuscular Volume 88.7 fL (80.0-98.0); Mean Platelet Volume 10.1 fL (9.4-12.4); Platelet Count 211 X10*3/uL (160-400); Red Blood Count 5.04 X10*6/uL (4.60-5.80); Red Cell Distribution Width 12.5 % (11.0-16.0); White Blood Count 9.3 X10*3/uL (4.8-10.8)
[2021-11-15 07:33] LABS: Estimated Average Glucose 111 mg/dL; Hemoglobin A1C 149.3884 umol/L; Hemoglobin A1c % 5.5 %
[2021-11-15 07:52] LABS: Alanine Aminotransferase 65 U/L (0-40); Albumin Level 4.3 g/dL (3.5-5.0); Alkaline Phosphatase 80 U/L (39-117); Anion Gap 11 (12-20); Aspartate Amino Transferase 35 U/L (5-37); Bilirubin Total 1.2 mg/dL (0.0-1.0); Blood Urea Nitrogen 15 mg/dL (9-16); Calcium 9.5 mg/dL (8.4-10.2); Carbon Dioxide 28 mmol/L (22-29); Chloride 103 mmol/L (96-108); Cholesterol 129 mg/dL; Estimated Glomerular Filt Rate > 60; Glucose Random 99 mg/dL (60-115); HDL Cholesterol 40 mg/dL; LDL Cholesterol Calculated 75 mg/dl; Potassium 4.2 mmol/L (3.3-5.1); Sodium 138 mmol/L (135-145); Total Protein 7.1 g/dL (6.5-8.0); Triglycerides 71 mg/dL
[2021-11-15 08:17] LABS: Creatinine Urine 244.13 mg/dL; Microalbum/Creatinine Ratio Ur 8.6 ug/mg cr
== END 2021-11-15 06:47 | disposition home or self-care (01) ==
LOC: HO.LAB 06:46
PROVIDERS: PCP Family Medicine; Visit Provider Family Medicine
DX: E78.5 Hyperlipidemia, unspecified (principal); I10 Essential (primary) hypertension
CPT/HCPCS: 36415; 80053; 80061; 82043; 83036; 85027

== ENCOUNTER → 2022-01-28 13:58 | Outpatient (BNVA) | payer MEDICAID, SELFPAY | PROVIDERS: PCP Family Medicine; Referring Provider Family Medicine; Visit Provider Internal Medicine | DX: I25.10 Atherosclerotic heart disease of native coronary artery without angina pectoris (principal); I10 Essential (primary) hypertension; E78.5 Hyperlipidemia, unspecified; Z79.82 Long term (current) use of aspirin; Z79.899 Other long term (current) drug therapy; I25.2 Old myocardial infarction | CPT/HCPCS: 93005; 99212 ==

== ENCOUNTER → 2022-02-26 12:47 | Outpatient (BNVA) | payer MEDICAID, SELFPAY | PROVIDERS: PCP Family Medicine; Visit Provider Nurse Practitioner Family | DX: G47.33 Obstructive sleep apnea (adult) (pediatric) (principal) | CPT/HCPCS: 99202 ==

== ENCOUNTER → 2022-08-05 14:05 | Outpatient (BNVA) | payer MEDICAID, SELFPAY | PROVIDERS: PCP Family Medicine; Referring Provider Family Medicine; Visit Provider Internal Medicine | DX: I25.10 Atherosclerotic heart disease of native coronary artery without angina pectoris (principal); I10 Essential (primary) hypertension; E78.5 Hyperlipidemia, unspecified | CPT/HCPCS: 99212 ==

== ENCOUNTER 2022-08-06 06:49 | Outpatient (REF) | payer MEDICAID, SELFPAY ==
[2022-08-06 07:49] LABS: Alanine Aminotransferase 27 U/L (0-40); Albumin Level 4.2 g/dL (3.5-5.0); Alkaline Phosphatase 93 U/L (39-117); Aspartate Amino Transferase 22 U/L (5-37); Bilirubin Direct 0.4 mg/dL (0.0-0.5); Bilirubin Total 1.1 mg/dL (0.0-1.0); Cholesterol 142 mg/dL; HDL Cholesterol 41 mg/dL; LDL Cholesterol Calculated 87 mg/dl; Total Protein 6.9 g/dL (6.5-8.0); Triglycerides 74 mg/dL
== END 2022-08-06 06:50 | disposition home or self-care (01) ==
LOC: HO.LAB 06:49
PROVIDERS: PCP Family Medicine; Visit Provider Internal Medicine
DX: I25.10 Atherosclerotic heart disease of native coronary artery without angina pectoris (principal); E78.5 Hyperlipidemia, unspecified
CPT/HCPCS: 36415; 80061; 80076

== ENCOUNTER 2022-08-22 04:04 | Emergency (ER) | payer MEDICAID, SELFPAY ==
--- NOTE | ~2022-08-22 | XR_ITS ---
EXAMINATION: XR SHOULDER, LEFT CLINICAL INFORMATION: Fall. Shoulder pain. COMPARISON: None TECHNIQUE: Three views of the left shoulder. FINDINGS: There is an acute comminuted fracture of the surgical neck of the humerus with small comminution fragment evident laterally. No dislocation. Glenohumeral and acromioclavicular joints unremarkable. XR/XR shoulder LT min 2V IMPRESSION: Acute comminuted fracture of the surgical neck of the humerus.
[2022-08-22 04:10] VITALS: BP 168/90; PULSE 80; RESP 18; TEMP 36.5; O2SAT 98; BMI 26.4
[2022-08-22 04:42] VITALS: BP 149/84; PULSE 81; RESP 18; TEMP 37; O2SAT 99
--- NOTE | 2022-08-22 04:43 | ED_ITS ---
HPI - Fall General Chief Complaint: Fall Stated Complaint: fell down stairs Time Seen by Provider: 08/22/22 04:43 Source: patient Mode of arrival: ambulatory Limitations: no limitations History of Present Illness HPI Narrative: Patient lost balance and fell about 12 steps at home landed on his left shoulder comes here with pain in the left shoulder unable to abduct the shoulder no other significant injuries no loss of consciousness no head injury Related Data Home Medications Medication Instructions Recorded Confirmed omeprazole 20 mg capsule,delayed 20 mg PO DAILY 04/10/21 08/05/22 release loratadine 10 mg tablet 10 mg PO DAILY PRN 07/08/21 08/05/22 metoprolol succinate 25 mg 25 mg PO DAILY 07/08/21 08/05/22 tablet,extended release 24 hr albuterol sulfate 90 mcg/actuation 2 puff PO Q6-8H PRN dyspnea 01/28/22 08/05/22 aerosol inhaler (ProAir HFA) Previous Rx's Medication Instructions Recorded aspirin 81 mg tablet,delayed 81 mg PO DAILY #30 tabs 12/20/20 release atorvastatin 80 mg tablet 80 mg PO BEDTIME #30 tabs 12/20/20 nitroglycerin 0.4 mg sublingual 0.4 mg sublingual Q5M PRN Chest 12/20/20 tablet (Nitrostat) Pain #30 tabs lisinopril 5 mg tablet 5 mg PO DAILY #90 tabs 01/28/22 oxycodone-acetaminophen 5 mg-325 1 tab PO Q6H PRN pain #30 tabs 08/22/22 mg tablet (Percocet) Allergies Allergy/AdvReac Type Severity Reaction Status Date / Time No Known Allergies Allergy Verified 08/22/22 04:13 Review of Systems Review of Systems: Yes all other systems are reviewed and are negative [facility] Past Medical History Medical History Asthma CAD (coronary artery disease) High blood pressure Surgical History History of cardiac cath S/P cardiac cath Stented coronary artery Family History Family History Father CAD (coronary artery disease) Social History Social History Household Members: Significant Other Housing: Apartment Do you presently have visiting nurse or other home services: No Alcohol intake: current Alcohol intake frequency: holidays/special occasions only Alcohol type: beer Patient Tobacco Use Status: Never used Tobacco Second Hand Smoke Exposure: No Advance Directives: No Advance Directives Information Provided: Yes service: No Current occupational status: employed Physical Exam Vital Signs: Vital Signs: Last Vital Signs Temp 98.6 F 08/22/22 04:42 Pulse 81 08/22/22 04:42 Resp 18 08/22/22 04:42 BP 149/84 H 08/22/22 04:42 Pulse Ox 99 08/22/22 04:42 O2 Del Method 08/22/22 04:42 BMI result Body Mass Index 26.4 Appearance: Alert. Oriented X3. No acute distress. Eyes: PERRLA, No Nystagmus ENT: Pharynx normal. Oral Mucosa moist Neck: Normal inspection. Neck supple. No midline tenderness CVS: Normal heart rate and rhythm. Pulses normal. Respiratory: No respiratory distress. Equal air entry bilateral, no wheezing/rales/rhonchi Abdomen: Soft and nontender. Bowel sounds are present, no mass palpable, no CVA tenderness Skin: Skin warm and dry. Normal skin color. Normal skin turgor. back: No spinal tenderness Extremities: No lower extremity edema. No calf tenderness left arm in adduction with tenderness at upper and neurovascular intact Neuro: Oriented X 3. No motor deficit. No sensory deficit.No cerebellar signs , cranial nerves II-XII intact Medications Administered Discontinued Medications Generic Name Dose Route Start Last Admin Trade Name Makenzie PRN Reason Stop Dose Admin Ketorolac Tromethamine 60 mg 08/22/22 04:58 08/22/22 05:02 Ketorolac Tromethamine 60 Mg/2 Ml Vial IM 08/22/22 04:59 60 mg ONCE ONE Administration Medical Decision Making Medical Decision Making MDM Narrative: Patient with left humerus neck fracture status post fall will apply sling advised to follow-up with orthopedic Discharge Plan Discharge Clinical Impression: Fracture of humerus neck Patient Disposition: Home, Self-Care Instructions: Arm Fracture in Adults (ED) Additional Instructions: Keep your left arm in sling Pain medication as prescribed Follow-up with orthopedics Prescriptions: New oxycodone-acetaminophen [Percocet] 5-325 mg tablet 1 tab PO Q6H PRN (Reason: pain) Qty: 30 0RF Rx Instructions: Partial Fill upon patient request. No Action atorvastatin 80 mg Tablet 80 mg PO BEDTIME Qty: 30 0RF aspirin 81 mg Tablet,Delayed Release (Dr/Ec) 81 mg PO DAILY Qty: 30 0RF nitroglycerin [Nitrostat] 0.4 mg Tablet, Sublingual 0.4 mg sublingual Q5M PRN (Reason: Chest Pain) Qty: 30 0RF omeprazole 20 mg capsule,delayed release(DR/EC) 20 mg PO DAILY loratadine 10 mg tablet 10 mg PO DAILY PRN metoprolol succinate 25 mg tablet extended release 24 hr 25 mg PO DAILY albuterol sulfate [ProAir HFA] 90 mcg/actuation HFA aerosol inhaler 2 puff PO Q6-8H PRN (Reason: dyspnea) lisinopril 5 mg tablet 5 mg PO DAILY Qty: 90 3RF Referrals: Mahesh Ngo MD [Physician] - 1 week Stand Alone Forms: Work/School Release Interventions: ED Discharge Assessment Last Done: 08/22/22 05:40 Discharge Date/Time: 08/22/22 05:43
[2022-08-22] MEDS: Ketorolac Tromethamine 60 MG/2 ML VIAL IM (05:02)
== END 2022-08-22 05:43 | disposition home or self-care (01) ==
PROVIDERS: Emergency Provider Internal Medicine; PCP Family Medicine
DX: S42.292A Other displaced fracture of upper end of left humerus, initial encounter for closed fracture (principal); M25.512 Pain in left shoulder; X58.XXXA Exposure to other specified factors, initial encounter; Y93.9 Activity, unspecified; Y92.9 Unspecified place or not applicable; Y99.9 Unspecified external cause status; Z79.899 Other long term (current) drug therapy
CPT/HCPCS: 73030; 96372; 99284; J1885

== ENCOUNTER → 2022-08-28 11:05 | Outpatient (BNVA) | payer MEDICAID, SELFPAY | PROVIDERS: PCP Family Medicine; Visit Provider Physician Assistant | DX: S42.212A Unspecified displaced fracture of surgical neck of left humerus, initial encounter for closed fracture (principal) | CPT/HCPCS: 99202 ==

== ENCOUNTER → 2022-09-04 13:04 | Outpatient (REF) | payer MEDICAID, SELFPAY | LOC: HO.SL 13:04 | PROVIDERS: PCP Family Medicine; Visit Provider Nurse Practitioner Family | DX: G47.33 Obstructive sleep apnea (adult) (pediatric) (principal); I25.10 Atherosclerotic heart disease of native coronary artery without angina pectoris | CPT/HCPCS: 95806 ==

== ENCOUNTER 2022-09-25 08:55 | Outpatient (REF) | payer MEDICAID, SELFPAY ==
--- NOTE | ~2022-09-25 | XR_ITS ---
EXAMINATION: XR SHOULDER, LEFT CLINICAL INFORMATION: Pain. COMPARISON: Radiographs dated 08/22/2022. TECHNIQUE: AP external rotation, Grashey, scapular Y, and axillary views of the left shoulder. FINDINGS: Bony mineralization is normal. An impacted fracture is redemonstrated of the surgical neck of the proximal left humerus. There is mild new periosteal callus formation. The glenohumeral joint is intact. The acromioclavicular and coracoclavicular intervals are normal. No dislocation is seen. There is no foreign body or soft tissue calcification. No left pneumothorax is seen. XR/XR shoulder LT min 2V IMPRESSION: There is stable alignment of an impacted fracture of the surgical neck of the proximal left humerus. There is mild new periosteal callus formation.
== END 2022-09-25 08:56 | disposition home or self-care (01) ==
LOC: HO.HOSX 08:55
PROVIDERS: Visit Provider Physician Assistant
DX: S42.212A Unspecified displaced fracture of surgical neck of left humerus, initial encounter for closed fracture (principal)
CPT/HCPCS: 73030; 99202

== ENCOUNTER 2022-10-23 16:51 | Outpatient (REF) | payer MEDICAID, SELFPAY ==
--- NOTE | ~2022-10-23 | XR_ITS ---
EXAMINATION: XR SHOULDER, LEFT CLINICAL INFORMATION: Pain COMPARISON: None TECHNIQUE: AP external rotation, Grashey, scapular Y, and axillary views of the left shoulder. FINDINGS: Redemonstration of minimally displaced fracture of the surgical neck of the left humerus. No dislocation. XR/XR shoulder LT min 2V IMPRESSION: Redemonstration of minimally displaced fracture of the surgical neck of the left humerus.
== END 2022-10-23 16:52 | disposition home or self-care (01) ==
LOC: HO.HOSX 16:51
PROVIDERS: Visit Provider Physician Assistant
DX: S42.212A Unspecified displaced fracture of surgical neck of left humerus, initial encounter for closed fracture (principal)
CPT/HCPCS: 73030; 99212

== ENCOUNTER 2022-10-27 07:27 | Outpatient (REF) | payer MEDICAID, SELFPAY ==
--- NOTE | ~2022-10-27 | XR_ITS ---
EXAMINATION: XR CHEST CLINICAL INFORMATION: 56-year-old male patient with unintended weight loss. COMPARISON: Chest x-ray on 12/19/2020. TECHNIQUE: PA and lateral erect views of the chest. Evidently, the patient was unable to lift his left arm for an adequate lateral view. FINDINGS: No significant abnormality is noted involving the heart, lungs, mediastinum, bony thorax or soft tissues. XR/XR chest 2V IMPRESSION: Unremarkable examination.
[2022-10-27 09:26] LABS: Folate 6.1 ng/mL (> or = 4.0); Prostate Specific Antigen 2.99 ng/mL (<0.05-4.0); Vitamin B12 645 pg/mL (200-900)
== END 2022-10-27 07:28 | disposition home or self-care (01) ==
LOC: HO.XRAY 07:27
PROVIDERS: PCP Family Medicine; Visit Provider Family Medicine
DX: Z12.5 Encounter for screening for malignant neoplasm of prostate (principal); R63.4 Abnormal weight loss
CPT/HCPCS: 36415; 71046; 82607; 82746; 84153

== ENCOUNTER → 2022-11-03 12:32 | Outpatient (BNVA) | payer MEDICAID, SELFPAY | PROVIDERS: PCP Family Medicine; Visit Provider Nurse Practitioner Family | DX: G47.33 Obstructive sleep apnea (adult) (pediatric) (principal) | CPT/HCPCS: 99212 ==

== ENCOUNTER 2022-11-17 10:49 | Outpatient (REF) | payer MEDICAID, SELFPAY ==
--- NOTE | ~2022-11-17 | CT_ITS ---
EXAMINATION: CT ABDOMEN AND PELVIS WITHOUT AND WITH CONTRAST CLINICAL INFORMATION: Weight loss COMPARISON: CT abdomen pelvis 11/28/2021 TECHNIQUE: Multidetector volumetric imaging was performed of the abdomen and pelvis before and after the IV administration of 85 mL of Omnipaque 300 intravenous contrast. Sagittal and coronal reformatted images were obtained on the technologist's workstation. This CT examination was performed using dose optimization techniques as appropriate, variously including the following: *Automated exposure control *Adjustment of mA and/or kV according to patient size (this includes techniques or standardized protocols for targeted exams where dose is matched to indication/reason for exam; i.e. extremities or head) *Use of iterative reconstruction technique DLP: 1116 mGy-cm FINDINGS: LUNG BASES: The visualized lung bases are unremarkable. LIVER, GALLBLADDER, AND BILIARY TREE: The liver is normal in size, shape, and attenuation. No focal hepatic lesion or biliary ductal dilatation is present. The gallbladder is unremarkable with no evidence of radiopaque gallstones, gallbladder wall thickening, or obvious pericholecystic inflammatory changes. PANCREAS: Unremarkable SPLEEN: Unremarkable ADRENAL GLANDS: Unremarkable KIDNEYS AND URETERS: The kidneys are normal in size, shape, and attenuation. No hydronephrosis, hydroureter, or calculi seen. No perinephric stranding. BLADDER: Unremarkable GASTROINTESTINAL TRACT: There is scattered stool, gas seen throughout the colon without any significant distention. The small bowel loops are normal caliber. Appendix is not visualized. There is diffuse wall thickening of the stomach probably underdistention. The GE junction appears unremarkable. ABDOMINAL WALL: No significant hernia is appreciated. LYMPH NODES: Normal VASCULAR: Unremarkable PELVIC VISCERA: Prostate gland is mildly enlarged with central gland calcification. There is no free air or free fluid seen. OSSEOUS STRUCTURES: No aggressive lytic or sclerotic process seen. CT/CT abdomen pelvis wo/w IV con IMPRESSION: Moderate to significant constipation without distention. No radiopaque urolith or hydroureteronephrosis. Mild mural thickening of the stomach however nondistended. Similar findings were seen on previous exam 11/28/2021. Fleischner guidelines were followed.
[2022-11-17] MEDS: Barium Sulfate Oral (Vanilla) 450 ML ORAL.SUSP 900 ML PO (13:49)
[2022-11-17] MEDS: iohexoL 350 MG/ML 100 ML INFUS..BTL 85 ML IV (13:49)
== END 2022-11-17 10:50 | disposition home or self-care (01) ==
LOC: HO.CT 10:49
PROVIDERS: PCP Family Medicine; Visit Provider Family Medicine
DX: R63.4 Abnormal weight loss (principal)
CPT/HCPCS: 74178; Q9967

== ENCOUNTER 2022-12-04 07:38 | Outpatient (REF) | payer MEDICAID, SELFPAY | END 2022-12-04 07:39 | disposition home or self-care (01) | LOC: HO.HOSX 07:38 | PROVIDERS: Visit Provider Physician Assistant | DX: Z13.89 Encounter for screening for other disorder (principal) ==

== ENCOUNTER 2022-12-22 10:38 | Outpatient (REF) | payer MEDICAID, SELFPAY | END 2022-12-22 10:39 | disposition home or self-care (01) | LOC: HO.HOSX 10:38 | PROVIDERS: Visit Provider Physician Assistant | DX: Z13.89 Encounter for screening for other disorder (principal) ==

== ENCOUNTER 2023-01-06 08:05 | Outpatient (REF) | payer MEDICAID, SELFPAY | END 2023-01-06 08:06 | disposition home or self-care (01) | LOC: HO.HOSX 08:05 | PROVIDERS: Visit Provider Physician Assistant | DX: Z13.89 Encounter for screening for other disorder (principal) ==

== ENCOUNTER → 2023-02-16 13:25 | Outpatient (BNVA) | payer MEDICAID, SELFPAY | PROVIDERS: PCP Family Medicine; Visit Provider Nurse Practitioner Family | DX: G47.33 Obstructive sleep apnea (adult) (pediatric) (principal) | CPT/HCPCS: 99212 ==

== ENCOUNTER 2023-08-06 14:09 | Outpatient (AMB) | payer MEDICAID, SELFPAY ==
--- NOTE | 2023-08-06 14:23 | A.OFFVIS_ITS ---
Intake Vital Signs 08/06/23 14:24 Height 6 ft Weight 196 lb 3.382 oz BMI 26.6 BP 124/74 Blood Pressure Location Lt brachial Position Sitting Pulse 87 Intake Visit Reasons: 1 yr f/up Intake Note: 1 year follow upw/ EKG Adult Care Provider Required: No Accompanied by: Self / Same As Patient Allergies No Known Allergies Allergy (Verified 08/06/23 14:23) Medication List - Last Reconciled 08/06/23 by Mariama Uribe NP albuterol sulfate 90 mcg/actuation (ProAir HFA) 2 puffs PO Q6-8H PRN atorvastatin 80 mg PO BEDTIME lisinopril 5 mg PO DAILY loratadine 10 mg PO DAILY PRN metoprolol succinate ER 25 mg PO DAILY nitroglycerin (Nitrostat) 0.4 mg sublingual Q5M PRN omeprazole 20 mg PO DAILY sertraline 50 mg PO QAM HPI HPI Comments History of Present Illness Details 57-year-old male presents for a follow-u p. He reports he gets an occasional chest pressure with exertion such as stairs. He reports he is doing well overall, he has been taking care of his father. He has not beeen taking the ASA 81mg. He is unsure why. He is compliant with all other medications. Denies shortness with exertion or swelling. [facility] Medical History CAD (coronary artery disease) Asthma High blood pressure Surgical History History of cardiac cath Stented coronary artery S/P cardiac cath Family History Father CAD (coronary artery disease) Social History Household Members: Significant Other Housing: Apartment Do you presently have visiting nurse or other home services: No Alcohol intake: current Alcohol intake frequency: holidays/special occasions only Alcohol type: beer Patient Tobacco Use Status: Never used Tobacco Second Hand Smoke Exposure: No service: No Current occupational status: employed Current occupation: housekeeping / right hand dominant Review of Systems Const Denies weakness ENT Denies dizziness Card Denies chest pain with activity, Denies syncope, Denies rapid heart rate, Denies pedal edema, Denies edema, Denies leg edema, Denies lightheadedness, Denies palpitations, Denies dyspnea, Denies dyspnea on exertion and Denies orthopnea Resp Denies cough, Denies dyspnea and Denies dyspnea on exertion GI Denies hematochezia and Denies change in stool character Musc Denies abnormal gait, Denies muscle cramps, Denies muscle weakness, Denies numbness, Denies radiating pain into limb and Denies tingling Neuro Denies abnormal gait, Denies dizziness, Denies syncope, Denies numbness, Denies tingling and Denies weakness Endo Denies palpitations Physical Exam Const General: healthy appearing and no acute distress Orientation/consciousness: patient oriented x3 HEENT Head: Yes normal to inspection Eyes General: appearance normal, both eyes and all related structures Neck Neck: Yes normal visual inspection Chest Chest palpation & inspection: normal inspection of the chest Resp Effort & Inspection: normal respiratory effort Auscultation: clear to auscultation bilaterally Cardio Jugular venous distension: no JVD Palpation: normal PMI Rate: regular rate Rhythm: regular rhythm Heart sounds: S1 normal heart sound present, S2 normal heart sound present, no click, no gallops, no murmurs and no rubs GI Inspection: Yes normal to inspection Palpation (GI): Soft to palpation Skin General skin exam: no rashes or lesions noted Neuro General: patient oriented x3 Extrem General: Yes normal to inspection Psych Appearance: grossly normal Assessment & Plan Assessment & Plan (1) Precordial chest pain: Code(s): R07.2 - Precordial pain (2) Atherosclerotic cardiovascular disease: Code(s): I25.10 - Atherosclerotic heart disease of [place] coronary artery without angina pectoris (3) Stented coronary artery: Code(s): Z95.5 - Presence of coronary angioplasty implant and graft Plan History of LAD stent. He is reporting chest pressure of exertion - will do exercise stress test with nuclear images to assess perfusion. Continue medications. ASA 81mg is indefinitely. Will have him meet with Dr. Gonsalez after testing. Orders: Orders NM cardiolite stress test Today I25.10 - Atherosclerotic heart disease of [place] coronary artery without angina pectoris, R07.2 - Precordial pain, Z95.5 - Presence of coronary angioplasty implant and graft CA stress test Today I25.10 - Atherosclerotic heart disease of [place] coronary artery without angina pectoris, R07.2 - Precordial pain, Z95.5 - Presence of coronary angioplasty implant and graft Medications: New aspirin 81 mg PO DAILY 90 days 90 tabs 3RF Coding Level of Care Code Est Pt Level 3 (37093) Diagnoses Precordial chest pain R07.2 Atherosclerotic cardiovascular disease I25.10 Stented coronary artery Z95.5
[2023-08-06 14:24] VITALS: BP 124/74; PULSE 87; BMI 26.6
== END 2023-08-06 14:48 | disposition home or self-care (01) ==
PROVIDERS: Visit Provider Nurse Practitioner
DX: R07.2 Precordial pain (principal); I25.10 Atherosclerotic heart disease of native coronary artery without angina pectoris; Z95.5 Presence of coronary angioplasty implant and graft
CPT/HCPCS: 93010; 99213

== ENCOUNTER → 2023-08-06 14:09 | Outpatient (BNVA) | payer MEDICAID, SELFPAY | PROVIDERS: Visit Provider Nurse Practitioner | DX: R07.2 Precordial pain (principal); I25.10 Atherosclerotic heart disease of native coronary artery without angina pectoris; Z95.5 Presence of coronary angioplasty implant and graft | CPT/HCPCS: 93005; 99212 ==

== ENCOUNTER → 2023-10-27 08:52 | Outpatient (REF) | payer MEDICAID, SELFPAY ==
--- NOTE | ~2023-10-27 | NM_ITS ---
EXERCISE MYOCARDIAL PERFUSION STUDY INDICATION: Chest pain, assess for coronary disease ischemia TECHNIQUE: The patient was brought in for an exercise perfusion study on 10/27/2023. Patient performed exercise as per Jos protocol and was injected 30 mCi of sestamibi once target heart rate was achieved. Images were obtained using the SPECT gamma camera interlaced with the gating device. Images were obtained in supine position. Resting perfusion study was performed on 11/19/2023. Patient was administered 30 mCi of sestamibi intravenously at rest. Images were then obtained in supine position. Images were processed with the software and compared side to side in short axis, horizontal long axis and vertical long axis views. Total DLP 49mGy-cm. FINDINGS: Raw images were reviewed. The stress perfusion study showed mildly diminished tracer uptake along the inferolateral wall. There is improvement with CT attenuation correction suggestive of diaphragmatic attenuation artifact. There is also diminished tracer uptake in the basal part of inferior septum without improvement from CT attenuation correction. The gated study shows normal LV systolic function with calculated LVEF of 59%. LV cavity is normal in size. The gated study shows normal wall thickening and contraction of segments. Resting study shows mildly diminished tracer uptake along the inferolateral wall. There is improvement with CT attenuation correction suggestive of diaphragmatic attenuation artifact. There is also diminished uptake in the basal part of septum without any change from CT attenuation correction. Gating at rest reveals normal wall motion with ejection fraction at 59%. The findings are consistent with no clear reversible defects. Fixed defect in the basal inferolateral wall. Basal inferior septum has some reversibility. NM/NM cardiolite stress test IMPRESSION: 1. Myocardial perfusion imaging study shows possible ischemia in the basal part of inferior septum. 2. Gated LVEF is 59% during stress and rest. 3. Transient ischemic dilatation not present. EKG component of the test reported separately.
--- NOTE | 2023-10-27 08:55 | CA_ITS ---
Acquisition Time: 2023-10-27 09:04:45 Total Exercise Time: 00:06:31 Test Indications: CHEST PAIN Medications: Protocol: JOSE ANTONIO Max HR: 146 BPM 89% of Pred: 164 BPM Max BP: 140/064 mmHG Max Work Load: 7.0 METS Exercise stress test exercise 6 min 31 sec of Jose Antonio protocol (stage 2 held) achieving 90% MPHR, without chest pain, with mild to moderate SOB, without arrhtyhmias, with nromotensive response to exercise, without EKG changes, Nuclear images pending. Test reviewed with Dr. Simpson. Referred By: Mariama Uribe Overread By: Mariama Uribe
== END ==
LOC: HO.CARD 08:52
PROVIDERS: PCP Family Medicine; Visit Provider Nurse Practitioner
DX: R07.2 Precordial pain (principal); I25.10 Atherosclerotic heart disease of native coronary artery without angina pectoris; Z95.5 Presence of coronary angioplasty implant and graft
CPT/HCPCS: 78452; 93017; A9500

== ENCOUNTER → 2023-10-27 08:55 | Outpatient (BNV) | payer MEDICAID, SELFPAY | PROVIDERS: PCP Family Medicine; Visit Provider Nurse Practitioner | DX: R07.9 Chest pain, unspecified (principal) | CPT/HCPCS: 78452; 93016; 93018 ==

== ENCOUNTER 2023-12-23 12:49 | Outpatient (AMB) | payer MEDICAID, SELFPAY ==
[2023-12-23 12:54] VITALS: BP 122/68; PULSE 88; O2SAT 98; BMI 27.8
--- NOTE | 2023-12-23 12:54 | A.OFFVIS_ITS ---
Vital Signs 12/23/23 12:54 Height 6 ft Weight 205 lb 0.478 oz BMI 27.8 BP 122/68 Blood Pressure Location Lt brachial Position Sitting Pulse 88 Pulse Source Pulse Oximeter Pulse Oximetry (%) 98 Oxygen Delivery Method Room Air Intake Visit Reasons: Follow Up Allergies No Known Allergies Allergy (Verified 12/23/23 13:11) Medication List - Last Reconciled 12/23/23 by Mariama Uribe NP albuterol sulfate 90 mcg/actuation (ProAir HFA) 2 puffs PO Q6-8H PRN aspirin 81 mg PO DAILY 90 days atorvastatin 80 mg PO BEDTIME lisinopril 5 mg PO DAILY loratadine 10 mg PO DAILY PRN metoprolol succinate ER 25 mg PO DAILY nitroglycerin (Nitrostat) 0.4 mg sublingual Q5M PRN omeprazole 20 mg PO DAILY sertraline 50 mg PO QAM HPI Comments Details: 57-year-old male presents for a follow-up. He reports he gets an occasional chest pressure with exertion such as stairs. He reports he is doing well overall, he has been taking care of his father. He is compliant with his medications. Denies shortness with exertion or swelling. [facility] Medical History Abnormal stress test CAD (coronary artery disease) Asthma High blood pressure Surgical History History of cardiac cath Stented coronary artery S/P cardiac cath Family History Father CAD (coronary artery disease) Social History Household Members: Significant Other Housing: Apartment Do you presently have visiting nurse or other home services: No Alcohol intake: current Alcohol intake frequency: holidays/special occasions only Alcohol type: beer Patient Tobacco Use Status: Never used Tobacco Second Hand Smoke Exposure: No service: No Current occupational status: employed Current occupation: housekeeping / right hand dominant Physical Exam Vital Signs: Last Vital Signs Pulse 88 12/23/23 12:54 BP 122/68 12/23/23 12:54 Pulse Ox 98 12/23/23 12:54 Oxygen Delivery Method Room Air 12/23/23 12:54 BMI result Body Mass Index 27.8 Results Reviewed Results Reviewed: NM/NM cardiolite stress test IMPRESSION: 1. Myocardial perfusion imaging study shows possible ischemia in the basal part of inferior septum. 2. Gated LVEF is 59% during stress and rest. 3. Transient ischemic dilatation not present. Assessment & Plan Assessment & Plan (1) Chest pain: Code(s): R07.9 - Chest pain, unspecified Category: Medical Qualifiers: Chest pain type: precordial pain Qualified Code(s): R07.2 - Precordial pain Plan Nuclear imaging shows possible ischemia in the basal part of inferior septum. Still having symptoms of chest discomfort on the left side with exertion with history of stents in 2020. Patient is agreeable to cardiac catheterization. Orders: Orders Cardiac Cath LT w PCI 12/23/23 R07.2 - Precordial pain, R94.39 - Abnormal result of other cardiovascular function study Basic Metabolic Panel 12/23/23 R07.2 - Precordial pain, R94.39 - Abnormal result of other cardiovascular function study Complete Blood Count Auto Diff 12/23/23 R07.2 - Precordial pain, R94.39 - Abnormal result of other cardiovascular function study, Z01.812 - Encounter for preprocedural laboratory examination Prothrombin Time INR 12/23/23 R07.2 - Precordial pain, R94.39 - Abnormal result of other cardiovascular function study, Z01.812 - Encounter for preprocedural laboratory examination Coding Level of Care Code Est Pt Level 3 (01311) Diagnoses Chest pain R07.2 Chest pain type: precordial pain
== END 2023-12-23 13:16 | disposition home or self-care (01) ==
PROVIDERS: PCP Family Medicine; Visit Provider Nurse Practitioner
DX: R07.2 Precordial pain (principal)
CPT/HCPCS: 99213

== ENCOUNTER → 2023-12-23 12:49 | Outpatient (BNVA) | payer MEDICAID, SELFPAY | PROVIDERS: PCP Family Medicine; Visit Provider Nurse Practitioner | DX: R07.2 Precordial pain (principal) | CPT/HCPCS: 99212 ==

== ENCOUNTER 2024-06-20 13:18 | Outpatient (AMB) | payer MEDICAID, SELFPAY ==
[2024-06-20 13:46] VITALS: BP 126/80; PULSE 78; O2SAT 97; BMI 27.8
--- NOTE | 2024-06-20 13:46 | MHC.OFFVIS ---
Vital Signs 06/20/24 13:46 Height 6 ft Weight 205 lb BMI 27.8 BP 126/80 Blood Pressure Location Rt brachial Position Sitting Pulse 78 Pulse Source Pulse Oximeter Pulse Oximetry (%) 97 Oxygen Delivery Method Room Air Intake Visit Reasons: 1yr Follow up Ecology Teacher Required: Yes Ecology Teacher Name: Lea Lott Information Interpreted: non-clinical & clinical Accompanied by: Self / Same As Patient Allergies No Known Allergies Allergy (Verified 06/20/24 13:50) Medication List - Last Reconciled 06/20/24 by JANETT Reyes albuterol sulfate 90 mcg/actuation (ProAir HFA) 2 puffs PO Q6-8H PRN aspirin 81 mg PO DAILY 90 days atorvastatin 80 mg PO BEDTIME lisinopril 5 mg PO DAILY lisinopril-hydrochlorothiazide 20-12.5 mg 1 tab PO QAM loratadine 10 mg PO DAILY PRN metoprolol succinate ER 25 mg PO DAILY nitroglycerin (Nitrostat) 0.4 mg sublingual Q5M PRN omeprazole 20 mg PO DAILY sertraline 50 mg PO QAM HPI Comments Details: 58-yr-old male presents for follow-up visit of sleep apnea. Pt was previously seen by our former colleague, Gerry Reese NP. Pt denies any significant interval medical history changes. Pt reports he is usuing his CPAP regularly and overall sleeping ok w/ his CPAP machine. However the mask is often bothersome, especially when his nose is more congested- uses Benadryl sometimes but it does not help. The mask puts too much pressure on the bridge of his nose, which is causing a darkened discoloration. The mask also leaks which bothers his girlfriend. He states he uses bottled, but not distilled water in his machine. [address], [facility] [place] Email: [email or web address] Compliance Report Usage 05/21/2024 - 06/19/2024 Usage days 30/30 days (100%) >= 4 hours 26 days (87%) < 4 hours 4 days (13%) Average usage (days used) 5 hours 15 minutes AirSense 11 AutoSet Serial number [id number] Mode AutoSet Min Pressure 5 cmH2O Max Pressure 15 cmH2O EPR Ramp Only EPR level 2 Response Standard Therapy Pressure - cmH2O Median: 5.7 95th percentile: 8.1 Maximum: 9.5 Leaks - L/min Median: 32.8 95th percentile: 87.2 Maximum: 114.2 Events per hour AI: 1.5 HI: 0.7 AHI: 2.2 Apnea Index Central: 0.3 Obstructive: 0.2 Unknown: 0.9 RERA Index 0.4 PFSH Medical History Abnormal stress test CAD (coronary artery disease) Asthma High blood pressure Surgical History History of cardiac cath Stented coronary artery S/P cardiac cath Family History Father CAD (coronary artery disease) Social History Household Members: Significant Other Housing: Apartment Do you presently have visiting nurse or other home services: No Alcohol intake: current Alcohol intake frequency: holidays/special occasions only Alcohol type: beer Patient Tobacco Use Status: Never used Tobacco Second Hand Smoke Exposure: No service: No Current occupational status: employed Current occupation: housekeeping / right hand dominant Physical Exam Vital Signs: Last Vital Signs Pulse 78 06/20/24 13:46 BP 126/80 06/20/24 13:46 Pulse Ox 97 06/20/24 13:46 Oxygen Delivery Method Room Air 06/20/24 13:46 BMI result Body Mass Index 27.8 Const General: no acute distress Orientation/consciousness: patient oriented x3 HEENT Other: Mallampati stage IV Left nasal erythema Bridge of nose discolored- darker. Medially cheeks- perch machine inspector in color. Resp Effort & Inspection: normal respiratory effort and able to speak in complete sentences Neuro General: patient oriented x3 Psych Mental Status: mental status grossly normal Speech and movement: Clear speech present Attitude: cooperative Assessment & Plan Assessment & Plan (1) DAGO (obstructive sleep apnea): Code(s): G47.33 - Obstructive sleep apnea (adult) (pediatric) Category: Medical (2) Nasal congestion: Code(s): R09.81 - Nasal congestion Category: Medical Plan Continue APAP 5-15 cmH2O, however adjsuted EPR from 2 to 3 via Resmed Airview in hopes this improves PAP tolerance. Will request mask fitting. Try Azelastine nasal spray 1-2 sprays into each nose qhs. Advised to use distilled water, as this may reduce risk for nasal congestion. Continue to use APAP nightly > 4 hours, as pt continues to have good overall clinical effect from use.. Clean CPAP machine and supplies routinely. Change CPAP supplies routinely. Pt to contact us or respiratory company with any questions or concerns. Pt to follow-up in 6 months or sooner prn. Medications: New azelastine administer into each nostril 2 sprays intranasal BID 30 days 30 mL 3RF Coding Level of Care Code Est Pt Level 4 (29934) Diagnoses DAGO (obstructive sleep apnea) G47.33 Nasal congestion R09.81
== END 2024-06-20 14:45 | disposition home or self-care (01) ==
LOC: HO.HSMS 13:23
PROVIDERS: Absent Provider Nurse Practitioner Family; PCP Family Medicine; Visit Provider Nurse Practitioner Family
DX: G47.33 Obstructive sleep apnea (adult) (pediatric) (principal); R09.81 Nasal congestion
CPT/HCPCS: 99214

== ENCOUNTER → 2024-06-20 13:18 | Outpatient (BNVA) | payer MEDICAID, SELFPAY | PROVIDERS: Absent Provider Nurse Practitioner Family; PCP Family Medicine; Visit Provider Nurse Practitioner Family | DX: G47.33 Obstructive sleep apnea (adult) (pediatric) (principal); R09.81 Nasal congestion; Z99.89 Dependence on other enabling machines and devices | CPT/HCPCS: 99212 ==

== ENCOUNTER 2024-08-30 13:42 | Outpatient (AMB) | payer MEDICAID, SELFPAY ==
[2024-08-30 13:45] VITALS: BP 110/64; PULSE 85; BMI 27.6
--- NOTE | 2024-08-30 13:45 | MHC.OFFVIS ---
Vital Signs 08/30/24 13:45 Height 6 ft Weight 203 lb 4.259 oz BMI 27.6 BP 110/64 Blood Pressure Location Lt brachial Position Sitting Pulse 85 Pulse Source Monitor Intake Visit Reasons: f/u pt request Intake Note: F/up per pt he miss his cath Senior Hardware Engineer Required: No Accompanied by: Self / Same As Patient Allergies No Known Allergies Allergy (Verified 08/30/24 14:22) Medication List - Last Reconciled 08/30/24 by Presley Tran NP albuterol sulfate 90 mcg/actuation (ProAir HFA) 2 puffs PO Q6-8H PRN aspirin 81 mg PO DAILY 90 days atorvastatin 80 mg PO BEDTIME azelastine 2 sprays intranasal BID 30 days lisinopril-hydrochlorothiazide 20-12.5 mg 1 tab PO QAM loratadine 10 mg PO DAILY PRN metoprolol succinate ER 25 mg PO DAILY nitroglycerin (Nitrostat) 0.4 mg sublingual Q5M PRN omeprazole 20 mg PO DAILY sertraline 50 mg PO QAM HPI Comments Details: This is a 58-year-old male patient with a history of coronary artery disease, elevated troponins and chest pain in 2020, which led to cardiac catheterization and stenting of the LAD. He was seen in 01/04/2024 at this office for exertional chest pain, for which a stress test with nuclear imaging was performed and that suggested possible ischemia. 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 Patient reports today that he wants to prioritize his own healthy for caring for others. He continues to experience exertional chest discomfort primarily on the left side, describes it as a heaviness that resolves with rest. He reports associated symptoms of shortness of breath and dizziness with this. The patient otherwise denies any palpitations, leg edema, orthopnea, PND, presyncope, or syncope. [facility] Medical History Abnormal stress test CAD (coronary artery disease) Asthma High blood pressure Surgical History History of cardiac cath Stented coronary artery S/P cardiac cath Family History Father CAD (coronary artery disease) Social History Household Members: Significant Other Housing: Apartment Do you presently have visiting nurse or other home services: No Alcohol intake: current Alcohol intake frequency: holidays/special occasions only Alcohol type: beer Patient Tobacco Use Status: Never used Tobacco Second Hand Smoke Exposure: No service: No Current occupational status: employed Current occupation: housekeeping / right hand dominant Review of Systems Const Denies chills, Denies fatigue, Denies fever(s), Denies frequent falls, Denies weakness, Denies weight gain and Denies weight loss ENT Denies dizziness Card Denies chest pain, Denies leg edema, Denies lightheadedness, Denies palpitations, Denies dyspnea and Denies dyspnea on exertion Resp Denies cough, Denies dyspnea and Denies dyspnea on exertion GI Denies hematochezia Musc Denies abnormal gait, Denies muscle weakness, Denies numbness, Denies radiating pain into limb and Denies tingling Neuro Denies abnormal gait, Denies dizziness, Denies frequent falls, Denies numbness, Denies tingling and Denies weakness Endo Denies fatigue and Denies palpitations Physical Exam Vital Signs: Last Vital Signs Pulse 85 08/30/24 13:45 BP 110/64 08/30/24 13:45 BMI result Body Mass Index 27.6 Const General: cooperative, healthy appearing, comfortable and no acute distress Orientation/consciousness: patient oriented x3 HEENT Head: Yes normal to inspection Neck Neck: Yes normal visual inspection, Yes trachea midline and Yes supple Chest Chest palpation & inspection: normal inspection of the chest Resp Effort & Inspection: normal respiratory effort Auscultation: clear to auscultation bilaterally, no crackles, no rales, no rhonchi and no wheezes Cardio Jugular venous distension: no JVD Palpation: normal PMI Rate: regular rate Rhythm: regular rhythm Heart sounds: S1 normal heart sound present, S2 normal heart sound present, no click, no gallops, no murmurs and no rubs Peripheral pulses: Peripheral pulses 2+ throughout GI Inspection: Yes normal to inspection Palpation (GI): Soft to palpation Auscultation: normal bowel sounds Skin General skin exam: no rashes or lesions noted Neuro General: patient oriented x3 Extrem General: Yes normal to inspection, No no pedal edema and No calf tenderness Psych Appearance: grossly normal Mental Status: mental status grossly normal Speech and movement: Normal speech and movement present Office Procedures EKG Details: EKG today showed underlying normal sinus rhythm at 80 beats per minute, left axis deviation, nonspecific T-wave abnormality, [place] SD, [place]. [id number], Complete Assessment & Plan Assessment & Plan (1) Abnormal stress test: Code(s): R94.39 - Abnormal result of other cardiovascular function study Category: Medical Plan: 12/21/2020- cardiac catheterization showed 95% stenosis in the mid LAD, 40% stenosis in the RCA. 10/27/2023- myocardial perfusion study showed possible ischemia in the basal part of the inferior septum. In the exercise part of the stress, patient achieved 7.0 Mets, 90% MPHR without chest pain and without EKG changes. EKG today unchanged. With continued exertional chest pain and coronary artery disease, we will try to proceed again with a cardiac catheterization- explained in detail the indications, procedure, and risks involved. Explained may need another stent if severe stenosis noted. Verbalizes understanding. Recommended staying low until then. Advised heart healthy diet, aggressive blood pressure management ideally goal of less than 130 over 80, aggressive LDL management ideally goal of less than 70. Continue aspirin therapy. (2) Essential hypertension: Code(s): I10 - Essential (primary) hypertension Category: Medical Plan: Blood pressure today is well-controlled. Continue lisinopril hydrochlorothiazide combo and metoprolol. (3) HLD (hyperlipidemia): Code(s): E78.5 - Hyperlipidemia, unspecified Category: Medical Plan: Continue high-dose statin. Last LDL 87. We will update the labs. Follow-up in 2 weeks after the cardiac catheterization. In the interim, patient will call us with any concerns. This note was generated using voice recognition software. While every effort has been made to ensure accuracy and proper motor vehicle assembly supervisor, there may be occasional errors that could affect the content or meaning of the described symptoms. Orders: Orders Cardiac Cath LT w PCI Today R07.2 - Precordial pain, R94.39 - Abnormal result of other cardiovascular function study Complete Blood Count Auto Diff Today R94.39 - Abnormal result of other cardiovascular function study Prothrombin Time INR Today R94.39 - Abnormal result of other cardiovascular function study Basic Metabolic Panel Today R94.39 - Abnormal result of other cardiovascular function study AMB EKG-In Office Today R07.2 - Precordial pain Medications: Discontinued lisinopril Discontinued Reason: Doctor's Order 5 mg PO DAILY 90 tabs 3RF Coding Level of Care Code Est Pt Level 4 (70222) Diagnoses Abnormal stress test R94.39 Essential hypertension I10 HLD (hyperlipidemia) E78.5 CPT Codes EKG - CPT: 99139-[id number], Complete ([id number]) Time Spent (min) 31 Comment Time spent in reviewing the chart, test results, assessment, counseling and documentation.
== END 2024-08-30 14:40 | disposition home or self-care (01) ==
PROVIDERS: PCP Family Medicine
DX: R94.39 Abnormal result of other cardiovascular function study (principal); I10 Essential (primary) hypertension; E78.5 Hyperlipidemia, unspecified
CPT/HCPCS: 93010; 99214

== ENCOUNTER → 2024-08-30 13:42 | Outpatient (BNVA) | payer MEDICAID, SELFPAY | PROVIDERS: PCP Family Medicine | DX: R94.39 Abnormal result of other cardiovascular function study (principal); I10 Essential (primary) hypertension; E78.5 Hyperlipidemia, unspecified; R94.31 Abnormal electrocardiogram [ECG] [EKG] | CPT/HCPCS: 93005; 99212 ==

== ENCOUNTER 2025-01-02 12:38 | Outpatient (AMB) | payer MEDICAID, SELFPAY ==
--- NOTE | 2025-01-02 13:05 | A.OFFVIS_ITS ---
Vital Signs 01/02/25 13:06 Height 6 ft Weight 209 lb BMI 28.3 BP 140/80 H Blood Pressure Location Rt brachial Position Sitting Pulse 74 Pulse Source Pulse Oximeter Pulse Oximetry (%) 98 Oxygen Delivery Method Room Air Intake Visit Reasons: Follow Up 6mo Intake Note: Patient presents month follow up for DAGO, Compliance in chart. Engineering Scientist Required: No Engineering Scientist Name: Patient can understand venezuel[place] Accompanied by: Self / Same As Patient Allergies No Known Allergies Allergy (Verified 01/02/25 13:09) HPI Comments Details: 59-yr-old male presents for follow-up visit of sleep apnea. Pt denies any significant interval medical history changes, however he is scheduled to undergo follow-up cardiac testing due to ongoing chest pain/heaviness a mild dyspnea upon exertion, such as walking upstairs. He was supposed to have this done previously, but this was delayed due to a lapse in his health insurance. Today, he states he has a mild regular headache not associated with light or sound sensitivity or nausea. Denies any current chest pain or shortness of breath. Patient states she never received a new mask, PAP supplies or the nasal spray ordered at his last visit here 6 months ago. Pt continues to use his CPAP regularly and overall sleeping ok w/ his CPAP machine. However the mask is often bothersome, especially when his nose is more congested, and then he ends up taking off the CPAP mask in the middle of the night. He has tried OTC Benadryl sometimes but this was not helpful. The mask puts too much pressure on the bridge of his nose, which is causing a darkened discoloration. The mask also leaks which bothers his girlfriend. [address], [facility] Email: [email or web address] Compliance Report Usage 09/27/2024 - 12/25/2024 Overall usage 98% Usage greater than 4 hours 89% Average usage (days used) 6 hours 18 minutes AirSense 11 AutoSet Serial number [id number] APAP 5 - 15 cmH2O with EPR level 3 Maximum pressure 10.4 cm H2O Median leaks 28.6 L/min Residual AHI 1.9 per hour [facility] Medical History Abnormal stress test CAD (coronary artery disease) Asthma High blood pressure Surgical History History of cardiac cath Stented coronary artery S/P cardiac cath Family History Father CAD (coronary artery disease) Social History Household Members: Significant Other Housing: Apartment Do you presently have visiting nurse or other home services: No Alcohol intake: current Alcohol intake frequency: holidays/special occasions only Alcohol type: beer Patient Tobacco Use Status: Never used Tobacco Second Hand Smoke Exposure: No service: No Current occupational status: employed Current occupation: housekeeping / right hand dominant Physical Exam Vital Signs: Last Vital Signs Pulse 74 01/02/25 13:06 BP 140/80 H 01/02/25 13:06 Pulse Ox 98 01/02/25 13:06 Oxygen Delivery Method Room Air 01/02/25 13:06 BMI result Body Mass Index 28.3 Const General: no acute distress Orientation/consciousness: patient oriented x3 Resp Effort & Inspection: normal respiratory effort and able to speak in complete sentences Neuro General: patient oriented x3 Psych Mental Status: mental status grossly normal Speech and movement: Clear speech present Attitude: cooperative Assessment & Plan Assessment & Plan (1) DAGO (obstructive sleep apnea): Code(s): G47.33 - Obstructive sleep apnea (adult) (pediatric) Category: Medical (2) Nasal congestion: Code(s): R09.81 - Nasal congestion Category: Medical Plan Continue APAP 5-15 cmH2O with EPR 3 nightly greater than 4 hours, as patient has good reduction in residual AHI. * Clean CPAP machine and supplies routinely. * Change CPAP supplies routinely * Use distilled water in Pap water reservoir * Pt to contact us or respiratory company with any questions or concerns. To optimize PAP tolerance: * Will again request mask fitting and all PAP supplies * Again trial Azelastine nasal spray 1-2 sprays into each nose nightly- to reduce nasal congestion. Reviewed administration technique. Pt to follow-up in 6 months or sooner prn. Medications: Refilled azelastine administer into each nostril 2 sprays intranasal BID 30 days 30 mL 3RF Coding Level of Care Code Est Pt Level 3 (13477) Diagnoses DAGO (obstructive sleep apnea) G47.33 Nasal congestion R09.81
[2025-01-02 13:06] VITALS: BP 140/80; PULSE 74; O2SAT 98; BMI 28.3
== END 2025-01-02 13:37 | disposition home or self-care (01) ==
LOC: HO.HSMS 12:39
PROVIDERS: PCP Family Medicine; Visit Provider Nurse Practitioner Family
DX: G47.33 Obstructive sleep apnea (adult) (pediatric) (principal); R09.81 Nasal congestion
CPT/HCPCS: 99213

== ENCOUNTER → 2025-01-02 12:38 | Outpatient (BNVA) | payer MEDICAID, SELFPAY | PROVIDERS: PCP Family Medicine; Visit Provider Nurse Practitioner Family | DX: G47.33 Obstructive sleep apnea (adult) (pediatric) (principal); R09.81 Nasal congestion | CPT/HCPCS: 99212 ==

== ENCOUNTER 2025-03-17 07:13 | Outpatient (REF) | payer MEDICAID, SELFPAY ==
--- OUTSIDE RECORDS SUMMARY | 2025-03-17 07:15 | XMS_ITS | Encounter Summary ---
Author Organization [employer] Address [address] [place] [address] [address] [place] [address] Care Team Providers Care Publishing Editor Name Role Phone Kristal Solis MD Primary Care Provider Reason for Visit * Reason Comments Med Refill Encounter Details Date Type Department Care Team (Late st Contact Info) Description 01/03/2023 Refill [facility] MEDICINE [address] [place] [address] Kristal Solis MD [address] [place], [place] [id number] Social History Tobacco Use Types Packs/Day Years Used Date Smoking Tobacco: Never Passive Smoke Exposure: Never Smokeless Tobacco: Never Alcohol Use Standard Drinks/Week Comments Never 0 (1 standard drink = 0.6 oz pur e alcohol) Depression Answer Date Recorded Patient Health Questionnaire-9 Score 18 10/24/2022 Depression Answer Date Recorded Patient Health Questionnaire-2 Score 6 10/24/2022 Sex and Gender Information Value Date Recorded Sex Assigned at Male 06/16/2022 10:14 AM EDT Legal Sex Male 10:14 AM EDT Gender Identity Male 06/16/2022 10:14 AM EDT Sexual Orientation Don't know 06/16/2022 10 :14 AM EDT documented as of this encounter Plan of Treatment Not on file documented as of this encounter Visit Diagnoses Not on filedocumented in this encounter Additional Health Concerns Assessment Noted Time PHQ-9 Depression Total Score: 18 023 9:44 AM EST documented as of this encounter Care Teams Publishing Editor Relationship Specialty Start Date End Date Kristal Solis MD [address] [place] [address] PCP - General Family Medicine 12/27/20 documented as of this encounter
[2025-03-17 07:26] LABS: MANUAL DIFF FLAG NO
[2025-03-17 08:11] LABS: Hematocrit 45.9 % (42.0-52.0); Hemoglobin 15.4 g/dl (14.0-18.0); Imm Gran Abs Auto 0.02 X10*3/uL (0.00-0.03); Imm Gran Pct Auto 0.3 % (0.0-0.4); Lymphocytes Absolute Auto 2.0 X10*3/uL (1.2-4.9); Mean Corpuscular HGB Conc 33.6 g/dl (31.0-36.0); Mean Corpuscular Hemoglobin 28.9 pg (27.0-33.0); Mean Corpuscular Volume 86.3 fL (80.0-98.0); NRBC Abs Auto 0.000 X10*3/uL (0.0-0.012); NRBC Pct Auto 0.0 /100WBC (0.0-0.2); Platelet Count 242 X10*3/uL (160-400); Red Blood Count 5.32 X10*6/uL (4.60-5.80); White Blood Count 7.7 X10*3/uL (4.8-10.8)
[2025-03-17 08:28] LABS: Appearance Urine Clear; Glucose Urine UA Negative (Negative); PH 5.5 (5.0-9.0); Specific Gravity - Urine 1.020 (1.005-1.025)
[2025-03-17 08:57] LABS: Alanine Aminotransferase 17 U/L (0-40); Albumin Level 4.4 g/dL (3.5-5.0); Alkaline Phosphatase 75 U/L (39-117); Anion Gap 11 (12-20); Aspartate Amino Transferase 21 U/L (5-37); Blood Urea Nitrogen 10 mg/dL (9-16); Calcium 9.9 mg/dL (8.4-10.2); Carbon Dioxide 28 mmol/L (22-29); Chloride 105 mmol/L (96-108); Cholesterol 242 mg/dL (<200); Estimated Glomerular Filt Rate > 60; HDL Cholesterol 42 mg/dL (>40); Potassium 3.9 mmol/L (3.3-5.1); Sodium 140 mmol/L (135-145); Total Protein 7.5 g/dL (6.5-8.0); Triglycerides 155 mg/dL (<150)
[2025-03-17 09:06] LABS: HBS Num1 1.55 mIU/mL (0-7.99); HBc Num1 0.06 S/CO (0.00-0.79); HBsAGNum1 0.27 S/CO (0.00-0.99); Hepatitis B Surface Antigen Negative (Negative); ~HepC Num1 0.09 S/CO (0.00-0.79); ~Hepatitis B Surface Antibody NONREACTIVE (Nonreactive); ~Hepatitis C Antibody Nonreactive (Nonreactive)
== END 2025-03-17 07:14 | disposition home or self-care (01) ==
LOC: HO.LAB 07:13
PROVIDERS: PCP Family Medicine; Visit Provider Family Medicine
DX: Z23 Encounter for immunization (principal); Z11.59 Encounter for screening for other viral diseases; I10 Essential (primary) hypertension
CPT/HCPCS: 36415; 80053; 80061; 81003; 84443; 85025; 86704; 86706; 86803; 87340

== ENCOUNTER 2025-06-06 09:55 | Outpatient (REF) | payer MEDICAID, SELFPAY ==
[2025-06-06 10:12] LABS: MANUAL DIFF FLAG NO
[2025-06-06 11:05] LABS: Hematocrit 46.9 % (42.0-52.0); Hemoglobin 15.3 g/dl (14.0-18.0); Imm Gran Abs Auto 0.02 X10*3/uL (0.00-0.03); Imm Gran Pct Auto 0.3 % (0.0-0.4); Lymphocytes Absolute Auto 2.0 X10*3/uL (1.2-4.9); Mean Corpuscular HGB Conc 32.6 g/dl (31.0-36.0); Mean Corpuscular Hemoglobin 28.3 pg (27.0-33.0); Mean Corpuscular Volume 86.9 fL (80.0-98.0); NRBC Abs Auto 0.000 X10*3/uL (0.0-0.012); NRBC Pct Auto 0.0 /100WBC (0.0-0.2); Platelet Count 249 X10*3/uL (160-400); Red Blood Count 5.40 X10*6/uL (4.60-5.80); White Blood Count 7.7 X10*3/uL (4.8-10.8)
[2025-06-06 11:06] LABS: INTERNATIONAL NORM RATIO 1.0 (0.9-1.1); Prothrombin Time 11.7 SEC (10.9-12.4)
--- OUTSIDE RECORDS SUMMARY | 2025-06-06 11:24 | XMS_ITS | Encounter Summary ---
Author Organization [employer] Address [address] [place] [address] [address] [place] [address] Care Team Providers Care Bookstore Manager Name Role Phone Kristal Solis MD Primary Care Provider [phone] Reason for Visit * Reason Comments Med Refill Encounter Details Date Type Department Care Team (Late Contact Info) Description 01/03/2023 Refill [facility] MEDICINE [address] [place] [address] Kristal Solis MD [address] [place] [address] Social History Tobacco Use Types Packs/Day Years [...] as of this encounter Plan of Treatment Upcoming Encounters Date Type Department Care Team (Late Contact Info) Description 06/09/2025 10:30 AM EDT Clinical Support [facility] MED & PEDS [address] [place] [address] 06/26/2025 11:15 AM EST Office Visit [facility] MED & PEDS [address] [place] [address] Kristal Solis MD [address] [place] [address] documented as of this encounter Visit Diagnoses Not on filedocumented in this encounter Additional Health Concerns Assessment Noted Time PHQ-9 Depression Total Score: 18 023 9:44 AM EST documented as of this encounter Care Teams Bookstore Manager Relationship Specialty Start Date End Date Kristal Solis MD [address] [place] [id number] PCP - General Family Medicine 12/27/20 documented as of this encounter
--- OUTSIDE RECORDS SUMMARY | 2025-06-06 11:25 | XMS_ITS | Encounter Summary ---
Author Organization [employer] Address [address] [facility] 7[address] [place] [address] Care Team Providers Care Vacuum Technician Name Role Phone Kristal Solis MD Primary Care Provider [phone] Reason for Visit * Reason Comments Med Refill Encounter Details Date Type Department Care Team ([facility] st Contact Info) Description 11/22/2024 Refill [facility] MED & PEDS [address] [place], [place] [phone] Kristal Solis MD [address] [place], [place] [phone] Primary hypertension; Gastroesophageal reflux disease, unspecified whether esophagitis present Social History Tobacco Use Types Packs/Day Years Used Date Smoking Tobacco: Never Passive Smoke Exposure: Never Smokeless Tobacco: Never Alcohol Use Standard Drinks/Week Comments Never 0 (1 standard drink = 0.6 oz pur e alcohol) Depression Answer Date Recorded Patient Health Questionnaire-9 Score 18 10/24/2022 Housing Stability Answer Date Recorded What is your housing situation today? I have melania ortiz 06/11/[address] you li ve. Do you have problems with any of the following? None of the above 06/11/2023 Food Insecurity Answer Date Recorded Within the past 12 months, y ou worried that your food would run out before you got money to buy more: Never True 06/11/2023 Within the past 12 months,th e food you bought just didn't last and you didn't have enough money to get more: Never True Transportation Answer Date Recorded In the past 12 months, has l ack of transportation kept you from medical appts, meetings, work or from getting things needed for daily living? No 06/11/2023 Utilities Answer Date Recorded In the past 12 months, has t he electric, gas, oil or water company threatened to shut off services in your home? No 06/11/2023 Depression Answer Date Recorded Patient Health Questionnaire-2 Score 6 10/24/2022 Sex and Gender Information Value Date Recorded Sex Assigned at Male 06/16/2022 10:14 AM EDT Legal Sex Male 10:14 AM EDT Gender Identity Male 06/16/2022 10:14 AM EDT Sexual Orientation Don't know 06/16/2022 10 :14 AM EDT documented as of this encounter Plan of Treatment Upcoming Encounters Date Type Department Care Team (Late st Contact Info) Description 06/09/2025 10:30 AM EDT Clinical Support [facility] MED & PEDS [address] [place] [address] 06/26/2025 11:15 AM EST Office Visit [facility] MED & PEDS [address] [place] [address] Kristal Solis MD [address] [place] [address] documented as of this encounter Visit Diagnoses Diagnosis Primary hypertension Unspecified essential hypertension Gastroesophageal reflux disease, unspecified whether esophagitis present documented in this encounter Additional Health Concerns Assessment Noted Time PHQ-9 Depression Total Score: 18 023 9:44 AM EST documented as of this encounter Care Teams Vacuum Technician Relationship Specialty Start Date End Date Kristal Solis MD [address] [place] [id number] PCP - General Family Medicine 12/27/20 documented as of this encounter
--- OUTSIDE RECORDS SUMMARY | 2025-06-06 11:25 | XMS_ITS | Encounter Summary ---
Author Organization [employer] Address [address] [facility] [address] [place] [address] Care Team Providers Care Room Inspector Name Role Phone Kristal Solis MD Primary Care Provider [phone] Encounter Details Date Type Department Care Team ([facility] Contact Info) Description 06/06/2025 Orders Only GENERIC EXTERNAL DATA DEPARTMENT Provider, Generic External Data Social History Tobacco Use Types Packs/Day Years Used Date Smoking Tobacco: Never Passive Smoke Exposure: Never Smokeless Tobacco: Never Alcohol Use Standard Drinks/Week Comments Never 0 (1 standard drink = 0.6 oz pur e alcohol) Depression Answer Date Recorded Patient Health Questionnaire-9 Score 18 03/16/2025 Patient Health Questionnaire-9 Score 18 03/16/2025 Last PHQ-9: Questionnaire Data Not on file 0 03/16/2025 Housing Stability Answer Date Recorded What is your housing situation today? I do not have housing (Staying with others, in a hotel, in a correction, living outside on the street, on a beach, in a car, or in a park 01/23/[address] you li ve. Do you have problems with any of the following? None of the above 01/23/2025 Food Insecurity Answer Date Recorded Within the past 12 months, y ou worried that your food would run out before you got money to buy more: Never True 01/23/2025 Within the past 12 months,th e food you bought just didn't last and you didn't have enough money to get more: Never True 04/2025 Transportation Answer Date Recorded In the past 12 months, has l ack of transportation kept you from medical appts, meetings, work or from getting things needed for daily living? No 01/23/2025 Utilities Answer Date Recorded In the past 12 months, has t he electric, gas, oil or water company threatened to shut off services in your home? No 01/23/2025 Depression Answer Date Recorded Patient Health Questionnaire-2 Score 6 03/16/2025 Internet Access Answer Date Recorded Internet Access Q1 No 01/23/2025 Internet Access Q2 I cannot afford it 01/23/2025 Sex and Gender Information Value Date Recorded Sex Assigned at Male 06/16/2022 10:14 AM EDT Legal Sex Male 10:14 AM EDT Gender Identity Male 06/16/2022 10:14 AM EDT Sexual Orientation Don't know 06/16/2022 10 :14 AM EDT documented as of this encounter Plan of Treatment Upcoming Encounters Date Type Department Care Team ([facility] st Contact Info) Description 06/09/2025 10:30 AM EDT Clinical Support [facility] MED & PEDS [address] [place] [address] 06/26/2025 11:15 AM EST Office Visit [facility] MED & PEDS [address] [place] [address] Kristal Solis MD [address] [place] [address] documented as of this encounter Procedures Procedure Name Priority Date/Time Associated Diagnosis Comments CBC WITH AUTO DIFFERENTIAL Routine 06/06/2025 10:11 AM EDT PROTHROMBIN TIME-INR Routine 06/06/2025 10:11 AM EDT documented in this encounter Results * Prothrombin Time-INR (06/06/2025 10:11 AM EDT) Prothrombin Time 11.7 10.9 - 12.4 SEC [facility] INTERNATIONAL NORM RATIO 1.0 0.9 - 1.1 [facility] Comment:INTERNATIONAL NORMAL IZED RATIO (INR) REFERENCE RANGES Reference RangeFor patients not on anticoagulant therapy: 0.9 - 1.1INR ranges for oral anticoagulanttherapy:For prevention and treatment of venous thrombosis and pulmonary embolism: 2.0 - 3.0For acute myocardial infarction with aspirin therapy: 2.0 - 3.0For acute myocardial infarction without aspirin therapy: 3.0 - 4.0For patients with mechanical prosthetic heart valves: 2.5 - 3.5 06/06/2025 10:1 1 AM EDT 06/06/2025 10:11 AM EDT us Generic External Data Provider LAB BLOOD ORDERAB LES Final Result [facility] [address] [place], [place] [id number] [phone] * (ABNORMAL) CBC auto differential (06/06/2025 10:11 AM EDT) White Blood Count 7.7 4.8 - 10.8 X10*3/uL [facility] Red Blood Count 5.40 4.60 - 5.80 X10*6/uL [facility] Hemoglobin 15.3 14.0 - 18.0 g/dl [facility] Hematocrit 46.9 42.0 - 52.0 % [facility] Mean Corpuscular Volume 86.9 80.0 - 98.0 fL [facility] Mean Corpuscular Hemoglobin 28.3 27.0 - 33.0 pg [facility] Mean Corpuscular HGB Conc 32.6 31.0 - 36.0 g/dl [facility] Red Cell Distribution Width 12.0 11.0 - 16.0 % [facility] Platelet Count 249 160 - 400 X10*3/uL [facility] Mean Platelet Volume 10.5 9.4 - 12.4 fL [facility] Neutrophils Percent Auto 59.7 45 - 73 % [facility] Imm Gran Pct Auto 0.3 0.0 - 0.4 % [facility] Lymphocytes Percent Auto 25.7 20 - 40 % [facility] Monocytes Percent Auto 8.0 2 - 11 % [facility] Eosinophils Percent Auto 5.8(H) 0 - 4 % [facility] Basophils Percent Auto 0.5 0 - 2 % [facility] NRBC Pct Auto 0.0 0.0 - 0.2 /100WBC [facility] Neutrophils Absolute Auto 4.6 2.0 - 8.3 x10*3/uL [facility] Imm Gran Abs Auto 0.02 0.00 - 0.03 X10*3/uL [facility] Lymphocytes Absolute Auto 2.0 1.2 - 4.9 X10*3/uL [facility] Monocytes Absolute Auto 0.6 0.1 - 1.2 X10*3/uL [facility] Eosinophils Absolute Auto 0.5(H) 0.0 - 0.4 X10*3/uL [facility] Basophils Absolute Auto 0.0 0.0 - 0.2 X10*3/uL [facility] NRBC Abs Auto 0.000 0.0 - 0.012 X10*3/uL [facility] 06/06/2025 10:1 1 AM EDT 06/06/2025 10:11 AM EDT us Generic External Data Provider LAB BLOOD ORDERAB LES Final Result [facility] [address] [place] [address] [phone] documented in this encounter Visit Diagnoses Not on filedocumented in this encounter Additional Health Concerns Assessment Noted Time PHQ-9 Depression Total Score: 18 03/16/ 025 11:23 AM EDT documented as of this encounter Care Teams Room Inspector Relationship Specialty Start Date End Date Kristal Solis MD [address] [place] [id number] PCP - General Family Medicine 12/27/20 documented as of this encounter
--- OUTSIDE RECORDS SUMMARY | 2025-06-06 11:25 | XMS_ITS | Encounter Summary ---
Author Organization [employer] Address [address] [facility] [address] [place] [address] Care Team Providers Care Accounts Clerk Name Role Phone Kristal Solis MD Primary Care Provider [phone] Reason for Visit * Reason Comments Med Refill Encounter Details Date Type Department Care Team (Late st Contact Info) Description 10/25/2024 Refill [facility] MEDICINE [address] [place] [address] Kristal Solis MD [address] [place] [address] Social History Tobacco Use Types Packs/Day Years [...] 10:30 AM EDT Clinical Support [facility] MED & PEDS [address] [place] [address] 06/26/2025 11:15 AM EST Office Visit [facility] MED & PEDS [address] [place] [address] Kristal Solis MD [address] [place] [address] documented as of this encounter Visit Diagnoses Not on filedocumented in this encounter Additional Health Concerns Assessment Noted Time PHQ-9 Depression Total Score: 18 023 9:44 AM EST documented as of this encounter Care Teams Accounts Clerk Relationship Specialty Start Date End Date Kristal Solis MD [address] [place] [address] PCP - General Family Medicine 12/27/20 documented as of this encounter
--- OUTSIDE RECORDS SUMMARY | 2025-06-06 11:25 | XMS_ITS | Clinical Summary ---
Author Organization [employer] Address [address] [place] [address] Care Team Providers Care News Reel Cameraman Name Role Phone Kristal Solis MD Primary Care Provider [phone] Allergies No known active allergies Medications loratadine (Claritin) 10 MG tablet TAKE 1 TABLET BY MOUTH EVERY DAY NEEDED 90 tablet 3 Active metoprolol succinate XL (Toprol-XL) 25 MG 24 hr tablet Take 1 tablet (25 mg) by mouth Once per day. Do not crush or chew. 90 tablet 5 Active omeprazole (PriLOSEC) [address] capsuleIndication s:Gastroesophagea l reflux disease, unspecified whether esophagitis present TAKE 1 CAPSULE BY MOUTH EVERY DAY BEFORE A MEAL 90 capsule 5 Active albuterol (Ventolin HFA) 108 (90 Base) MCG/ACT inhaler Inhale 2 puffs every 6 (six) hours if needed for wheezing. 18 g 3 5 Active atorvastatin (Lipitor) 80 MG tablet Take 1 tablet (80 mg) by mouth at bedtime. 90 tablet 5 Active aspirin (Aspirin Low Dose) 81 MG EC tablet Take 1 tablet (81 mg) by mouth Once per day. 90 tablet 3 5 Active azelastine (Astelin) 0.1 % nasal spray Administer 2 sprays into each nostril 2 times daily. Use in each nostril as directed 30 mL 3 5 Active triamcinolone (Kenalog) 0.5 % ointment Apply topically 2 times daily. 90 g 5 Active nitroglycerin (Nitrostat) 0.[address] 1 tablet (0.4 mg) under the tongue every 5 (five) minutes if needed for chest pain. 3 tablet 5 Active sertraline (Zoloft) 50 MG tablet Take 50 mg by mouth in the morning. 5 Active olmesartan-hydroC HLOROthiazide (Benicar HCT) 40-25 MG tabletIndications :Primary hypertension Take 1 tablet by mouth Once per day. 90 tablet 1 5 Active Diclofenac Sodium 1 % gel Apply 5 g topically 4 times daily. 200 g 5 Active acetaminophen (Tylenol Extra Strength) 500 MG tablet Take 2 tablets (1,000 mg) by mouth every 8 (eight) hours if needed for mild pain. 90 tablet 5 Active traMADol (Ultram) 50 MG tabletIndications :Lumbar back pain Take 1 tablet (50 mg) by mouth every 6 (six) hours if needed for severe pain. 10 tablet 5 Active Active Problems Problem Noted Date Diagnosed Date Lumbar back pain 04/28/2025 Obstructive sleep apnea 03/16/2025 CAD S/P percutaneous coronary angioplasty 2024 Overview (03/16/2025): LAD stenosis (2020), needs cardiac cath Overweight 03/16/2025 Dermatitis 03/16/2025 Closed nondisplaced fracture of surgical neck of left humerus 08/25/2022 Assessment & Plan (08/25/2022 4:23 PM EST): Has upcoming appt with ortho in [facility], reports was asked at work for a letter stating duration of disability, he will need to see specialist before determining that timing. Blurry vision, bilateral 08/25/2022 Assessment & Plan (08/25/2022 4:23 PM EST): Requested referral to optometry, placed and route to pool. Primary hypertension 08/25/2022 Assessment & Plan (07/24/2023 11:55 AM EST): Uncontrolled: patient presented visit with mild elevated blood pressure with readings of 142/87 mmHg. Will not make any changes at this time. However, since patient reported intermittent chest tightness, will be prescribed Nitrostat. Advised to monitor blood pressure at home, and bring readings upon next office visit. Assessment & Plan (09/08/2022 3:47 PM EST): At target, continue current regimen and f/u 3-4 months. Assessment & Plan (08/25/2022 4:22 PM EST): Uncontrolled, will increase lisinopril to 20 mg and followup in 3-4 weeks. Target <140/90 mmHg. Resolved Problems Problem Noted Date Diagnosed Date Resolved Date Unintended weight loss 09/08/202203/16 Assessment & Plan (07/24/2023 11:51 AM EST): Patient has gain weight since last visit. Recommended to call Gastroenterology's office to schedule an appointment. Assessment & Plan (09/08/2022 3:47 PM EST): Has lost 8 lbs in 2 weeks, unintended, will send labs and f/u in 6-8 weeks Encounters Date Type Department Care Team Description 06/06/2025 Orders Only GENERIC EXTERNAL DATA DEPARTMENT Provider, Generic External Data 05/26/2025 Telephone [facility] [address] [place] [address] Kristal Solis MD 05/26/2025 Travel 04/28/2025 11:15 AM EDT Office Visit [facility] [address] [place] [address] Kristal Solis MD Primary hypertension (Primary Dx); Screening for colon cancer; Dietary counseling; Exercise counseling; Lumbar back pain; Encounter for immunization; CAD S/P percutaneous coronary angioplasty 04/28/2025 Travel 04/27/2025 Telephone [facility] [address] [place] [address] Kristal Solis MD chart prep 04/20/2025 Patient Outreach [facility] [address] [place], [place] [phone] Kristal Solis MD Pre-visit Planning (Pre visit planning LVM ) 03/16/2025 11:30 AM EDT Office Visit [facility] [address] [place] [address] Kristal Solis MD Obstructive sleep apnea (Primary Dx); Primary hypertension; Gastroesophageal reflux disease, unspecified whether esophagitis present; CAD S/P percutaneous coronary angioplasty; Overweight; Dermatitis; Screening for colon cancer; Encounter for immunization; Encounter for health-related screening 03/16/2025 Travel from Last 3 Months Immunizations Immunization Administration Dates Next Due Hep B, adult 04/28/2025 Influenza Injectable Quadriv alant Preservative Free IIV4 MDCK 06/07/2019 Influenza injectable quadriv alent preservative free 05/09/2021 Influenza, seasonal, injecta ble, preservative free 05/18/2024 Pfizer Covid-19 Vaccine 12+ 05/18/2024,1 ,11/26/2020,2020 Pfizer Covid-19 Vaccine 12+ cecile-sucrose (Frias Cap) 01/02/2022 Pneumococcal Conjugate PCV 20 03/16/2025 Tdap 03/16/2025,03/27/2003 Zoster, Recombinant 07/03/2021,05/02/2021 Social History Tobacco Use Types Packs/Day Years Used Date Smoking Tobacco: Never Passive Smoke Exposure: Never Smokeless Tobacco: Never Tobacco Cessation:Counseling Given: Not Answered Alcohol Use Standard Drinks/Week Comments Never 0 [...] with others, in a hotel, in a snf, living outside on the street, on a [...] Don't know 06/16/2022 10 :14 AM EDT Last Filed Vital Signs Vital Sign Reading Time Taken Comments Blood Pressure 152/86 04/28/2025 11:14 AM EDT Pulse 78 04/28/2025 11:14 AM EDT Temperature 36.8 C (98.2 F) 04/28/2025 11:14 AM EDT Respiratory Rate 20 04/28/2025 11:1 4 AM EDT Oxygen Saturation 98% 04/28/2025 11: 14 AM EDT Inhaled Oxygen Concentration - - Weight 94.7 kg (208 lb 12.8 oz) 025 11:14 AM EDT Height 182.9 cm (6') 04/28/2025 11:14 AM EDT Body Mass Index 28.32 04/28/2025 11:14 AM EDT Plan of Treatment Upcoming Encounters Date Type Department Care Team (Late st Contact Info) Description 06/09/2025 10:30 AM EDT Clinical Support [facility] [address] [place] [address] 06/26/2025 11:15 AM EST Office Visit [facility] [address] [place] [address] Kristal Solis MD [address] [place] [address] Health Maintenance Due Date Last Done Comments CT Colonography 1966 Colonoscopy 1966 Colorectal Cancer Screening 1966 FIT DNA/Cologuard 1966 FIT 1966 FOBT 1966 Sigmoidoscopy 1966 Influenza Vaccine (#1) 2025 , 05/09/2021, 06/07/2019 Hepatitis B Vaccines (2 of 3 - 19+ 3-dose series) 05/26/2025 04/28/2025 Depression Monitoring 09/16/2025 03/16/2025, 025 SDOH Screening 01/23/2026 01/23/2025 Alcohol/Substance Use Screening 03/16/2026 03/16/2025 Disability Screening 03/16/2026 03/16/2025 Tobacco Screening 04/28/2026 04/28/2025 Lipid Panel 03/17/2030 03/17/2025, 08/06/2022 DTaP/Tdap/Td Vaccines (3 - Td or Tdap) 03/16/2035 03/16/2025, 03/27/2003 RSV Patients and Patients Aged 60 years or older (1 - 1-dose 75+ series) 2041 Zoster Vaccines Completed 07/03/2021, 05/02/2021 HIV Screening Completed 09/10/2022 COVID-19 Vaccine Completed 05/18/2024, , 01/02/2022, Additional history exists Pneumococcal Vaccine: 50+ Years Completed 03/16/2025 Hepatitis C Screening Completed 03/17/2025 HIB Vaccines Aged Out No longer eligi ble based on patient's age to complete this topic HPV Vaccines Aged Out No longer eligi ble based on patient's age to complete this topic Hepatitis A Vaccines Aged Out No long er eligible based on patient's age to complete this topic IPV Vaccines Aged Out No longer eligi ble based on patient's age to complete this topic Meningococcal B Vaccine Aged Out No l onger eligible based on patient's age to complete this topic Meningococcal Vaccine Aged Out No joyce elisa eligible based on patient's age to complete this topic RSV under 20 months Aged Out No longe r eligible based on patient's age to complete this topic Rotavirus Vaccines Aged Out No longer eligible based on patient's age to complete this topic Procedures Procedure Name Priority Date/Time Associated Diagnosis Comments PROTHROMBIN TIME-INR Routine 06/06/2025 10:11 AM EDT CBC WITH AUTO DIFFERENTIAL Routine 06/06/2025 10:11 AM EDT HEPATITIS C AB W/REFL TO HCV RNA, QN, PCR Routine 03/17/2025 7:22 AM EDT Encounter for health-related screening HEPATITIS B SURFACE ANTIGEN, EIA Routine 03/17/2025 7:22 AM EDT Encounter for immunization HEPATITIS B CORE AB TOTAL Routine 03/17/2025 7:22 AM EDT Encounter for immunization HEPATITIS B SURFACE ANTIBODY, QUALITATIVE Routine 03/17/2025 7:22 AM EDT Encounter for immunization TSH W/REFLEX TO FT4 Routine 03/17/2025 7 :22 AM EDT Primary hypertension LIPID PANEL, STANDARD Routine 03/17/2025 7:22 AM EDT Primary hypertension COMPREHENSIVE METABOLIC PANEL Routine 03/17/2025 7:22 AM EDT Primary hypertension CBC WITH AUTO DIFFERENTIAL Routine 03/17/2025 7:22 AM EDT Primary hypertension URINALYSIS WITH REFLEX MICROSCOPIC Routine 03/17/2025 7:20 AM EDT Primary hypertension HIV 1/2 ANTIGEN/ANTIBODY, FOURTH GENERATION W/RFL Routine 09/10/2022 8:27 AM EST Unintended weight loss from Last 3 Months or Most Recently Relevant to Health Maintenance Results * (ABNORMAL) CBC auto differential (06/06/2025 10:11 AM EDT) Only the most recent of2 resultswithin the time period is included. White Blood Count 7.7 4.8 - 10.8 X10*3/uL [facility] Red Blood Count 5.40 4.60 - 5.80 X10*6/uL [facility] Hemoglobin 15.3 14.0 - 18.0 g/dl [facility] Hematocrit 46.9 42.0 - 52.0 % [facility] Mean Corpuscular Volume 86.9 80.0 - 98.0 fL [facility] Mean Corpuscular Hemoglobin 28.3 27.0 - 33.0 pg [facility] Mean Corpuscular HGB Conc 32.6 31.0 - 36.0 g/dl [facility] Red Cell Distribution Width 12.0 11.0 - 16.0 % [facility] Platelet Count 249 160 - 400 X10*3/uL [facility] Mean Platelet Volume 10.5 9.4 - 12.4 fL [facility] Neutrophils Percent Auto 59.7 45 - 73 % [facility] Imm Gran Pct Auto 0.3 0.0 - 0.4 % [facility] Lymphocytes Percent Auto 25.7 20 - 40 % [facility] Monocytes Percent Auto 8.0 2 - 11 % [facility] Eosinophils Percent Auto 5.8(H) 0 - 4 % [facility] Basophils Percent Auto 0.5 0 - 2 % [facility] NRBC Pct Auto 0.0 0.0 - 0.2 /100WBC [facility] Neutrophils Absolute Auto 4.6 2.0 - 8.3 x10*3/uL [facility] Imm Gran Abs Auto 0.02 0.00 - 0.03 X10*3/uL [facility] Lymphocytes Absolute Auto 2.0 1.2 - 4.9 X10*3/uL [facility] Monocytes Absolute Auto 0.6 0.1 - 1.2 X10*3/uL [facility] Eosinophils Absolute Auto 0.5(H) 0.0 - 0.4 X10*3/uL [facility] Basophils Absolute Auto 0.0 0.0 - 0.2 X10*3/uL [facility] NRBC Abs Auto 0.000 0.0 - 0.012 X10*3/uL [facility] 06/06/2025 10:1 1 AM EDT 06/06/2025 10:11 AM EDT Generic External Data Provider LAB BLOOD ORDERAB LES Final Result Performing Organization Address City/[facility] Co de Phone Number [facility] [address] [place] [phone] * Prothrombin Time-INR (06/06/2025 10:11 AM EDT) Prothrombin Time 11.7 10.9 - 12.4 SEC [facility] INTERNATIONAL NORM RATIO 1.0 0.9 - 1.1 [facility] Comment:INTERNATIONAL NORMAL IZED RATIO (INR) REFERENCE [...] 1 AM EDT 06/06/2025 10:11 AM EDT Generic External Data Provider LAB BLOOD ORDERAB LES Final Result Performing Organization Address City/[facility] Co de Phone Number [facility] [address] [place] [phone] * TSH W/Reflex to FT4 (03/17/2025 7:22 AM EDT) TSH reflex Free T4 3.20 0.32 - 4.0 uIU/mL [facility] Blood Venous blood specimen / Unknown 03/17/2025 7:22 AM EDT 03/17/2025 7:23 AM EDT Kristal Solis MD LAB BLOOD ORDERABLES Final Re sult Performing Organization Address [facility] de Phone Number [facility] [address] [place] [phone] * Hepatitis C Antibody with Reflex to HCV, RNA, Quantitative, Real-Time PCR (03/17/2025 7:22 AM EDT) Hepatitis C Antibody Nonreactive Nonreactive [facility] Comment:Antibodies to HCV no t detected; does not exclude early acuteHCV infection. Blood Venous blood specimen / Unknown 03/17/2025 7:22 AM EDT 03/17/2025 7:23 AM EDT Kristal Solis MD LAB BLOOD ORDERABLES Final Re sult Performing Organization Address [facility] Co de Phone Number [facility] [address] [place] [phone] * Hepatitis B surface antigen, EIA (03/17/2025 7:22 AM EDT) Pathologist [facility] Hepatitis B Surface Ag Negative Negative [facility] Blood Venous blood specimen / Unknown 03/17/2025 7:22 AM EDT 03/17/2025 7:23 AM EDT Kristal Solis MD LAB BLOOD ORDERABLES Final Re sult Performing Organization Address [facility] Co de Phone Number [facility] [address] [place] [phone] * Hepatitis B Core Antibody, Total (03/17/2025 7:22 AM EDT) Pathologist [facility] Hepatitis B Core Antibody Nonreactive Nonreactive [facility] Blood Venous blood specimen / Unknown 03/17/2025 7:22 AM EDT 03/17/2025 7:23 AM EDT Kristal Solis MD LAB BLOOD ORDERABLES Final Re sult Performing Organization Address City/[facility]/ZIP Co de Phone Number [facility] [address] [place] [phone] * Hepatitis B Surface Antibody, Qualitative (03/17/2025 7:22 AM EDT) ~Hepatitis B Surface Antibody NONREACTIVE Nonreactive [facility] Comment:Nonreactive: < 8.00 mIU/mL Blood Venous blood specimen / Unknown 03/17/2025 7:22 AM EDT 03/17/2025 7:23 AM EDT Kristal Solis MD LAB BLOOD ORDERABLES Final Re sult Performing Organization Address [facility] Co de Phone Number [facility] [address] [place] [phone] [phone] * (ABNORMAL) Lipid Panel, Standard (03/17/2025 7:22 AM EDT) Triglycerides 155(H) <150 mg/dL [facility] Comment:Mild Icterus.Interpr et result with caution.Desirable Triglyceride: less than 150 mg/dLBorderline High Triglyceride 150-199 mg/dLHigh Triglyceride: 200-499 mg/dLVery High Triglyceride: greater than or equal to 5OO mg/dL Cholesterol 242(H) <200 mg/dL [facility] Comment:Mild Icterus.Interpr et result with caution.Desirable Cholesterol: less than 200 mg/dLBorderline High Cholesterol: 200-239 mg/dLHigh Cholesterol: greater than 239 mg/dL LDL Cholesterol Calculated 169(H) <100 mg/dL [facility] Comment:Desirable LDL: less than 100 mg/dLNear Optimal/Above Optimal LDL: 110- 129 mg/dLBorderline High LDL: 130-159 mg/dLHigh LDL: 160-189 mg/dLVery High LDL: greater than or equal to 190 mg/dL HDL Cholesterol 42 >40 mg/dL [facility] Comment:Desirable HDL: great er than 40 mg/dL Note: This HDL assay may give artificially low results in patients with liver disease. Blood Venous blood specimen / Unknown 03/17/2025 7:22 AM EDT 03/17/2025 7:23 AM EDT us Kristal Solis MD LAB BLOOD ORDERABLES Final Re sult [facility] [address] [place] [phone] * (ABNORMAL) Comprehensive Metabolic Panel (03/17/2025 7:22 AM EDT) Sodium 140 135 - 145 mmol/L [facility] Potassium 3.9 3.3 - 5.1 mmol/L [facility] Chloride 105 96 - 108 mmol/L [facility] Carbon Dioxide 28 22 - 29 mmol/L [facility] Anion Gap 11(L) 12 - 20 [facility] Urea Nitrogen (BUN) 10 9 - 16 mg/dL [facility] Creatinine, Serum 1.23 0.5 - 1.4 mg/dL [facility] Comment:Mild Icterus.Interpr et result with caution. Estimated Glomerular Filt Rate >60 [facility] Comment:Chronic Kidney Disea se: Estimated GFR < 60 mL/min/[id number] Kidney Disease: Estimated GFR < 15 mL/min/1.73m2 Glucose 101 60 - 115 mg/dL [facility] Calcium 9.9 8.4 - 10.2 mg/dL [facility] Bilirubin, Total 0.8 0.0 - 1.0 mg/dL [facility] Comment:Mild Icterus. Aspartate Amino Transferase 21 5 - 37 U/L [facility] Alanine Aminotransferase 17 0 - 40 U/L [facility] Total Protein 7.5 6.5 - 8.0 g/dL [facility] Albumin Level 4.4 3.5 - 5.0 g/dL [facility] Alkaline Phosphatase 75 39 - 117 U/L [facility] Blood Venous blood specimen / Unknown 03/17/2025 7:22 AM EDT 03/17/2025 7:23 AM EDT Kristal Solis MD LAB BLOOD ORDERABLES Final Re sult Performing Organization Address [facility] Co de Phone Number [facility] [address] [place] [phone] * Urinalysis with reflex microscopic (03/17/2025 7:20 AM EDT) Color Urine Yellow [facility] Appearance Urine Clear [facility] PH 5.5 5.0 - 9.0 [facility] Glucose Urine UA Negative Negative mg/dL [facility] Urine Blood Negative Negative [facility] Specific [place] - Urine 1.020 1.005 - 1.025 [facility] Urine Protein Negative Neg-Trace mg/dL [facility] Urine Ketones Negative Negative mg/dL [facility] Nitrite Urine Negative Negative [facility] Leukocyte Esterase Urine Negative Negative [facility] Urine (Urine, Random) 03/17/2025 7:20 AM EDT 03/17/2025 8:16 AM EDT Narrative [facility] - 03/17/2025 8:30 AM EDT Urine, Clean Catch Kristal Solis MD LAB URINE ORDERABLES Final Re sult Performing Organization Address [facility] Co de Phone Number [facility] [address] [place] [phone] * HIV-1/2 Antigen and Antibodies, Fourth Generation, with Reflexes (09/10/2022 8:27 AM EST) HIV Antigen/Antibody, 4th Generation NON-REAC TIVE NON-REAC TIVE [facility] Comment: HIV-1 antigen and HIV-1/HIV-2 antibodies were not detected. There is no laboratory evidence of HIV infection. PLEASE NOTE: This information has been disclosed to you from records whose confidentiality may be protected by state law. If your state requires such protection, then the state law prohibits you from making any further disclosure of the information without the specific written consent of the person to whom it pertains, or as otherwise permitted by law. A general authorization for the release of medical or other information is NOT sufficient for this purpose. For additional information please refer to http://education.[employer]/faq/HQF004 (This link is being provided for informational/ educational purposes only.) The performance of this assay has not been clinically validated in patients less than 2 years old. Blood Venous blood specimen / Unknown 09/10/2022 8:27 AM EST 09/10/2022 8:28 AM EST Narrative [facility] - 09/11/2022 10:49 AM EST FASTING:YES FASTING: YES us Kristal Solis MD LAB BLOOD ORDERABLES Final Re sult [facility] [address] [place] [address] [facility] [address] [facility], ([address]) [place] [phone] from Last 3 Months or Most Recently Relevant to Health Maintenance [facility] Care Teams News [employer]el [employer] Relationship Specialty Start Date End Date Kristal Solis MD [address] [place] [phone] PCP - General Family Medicine 12/27/20
--- OUTSIDE RECORDS SUMMARY | 2025-06-06 11:25 | XMS_ITS | Encounter Summary ---
Author Organization [email or web address] Address [address] [facility] [address] [place] [address] Care Team Providers Care Supervisor [employer] Name Role Phone Kristal Solis MD Primary Care Provider [phone] Reason for Visit * Reason Comments Med Refill Encounter Details Date Type Department Care Team (Late st Contact Info) Description 07/23/2023 Refill [facility] [address] [place], [place] [phone] Юлия Caldwell MD [address] [place] [address] Social History Tobacco Use Types Packs/Day Years [facility] [address] [place] [address] 06/26/2025 11:15 AM EST Office Visit [facility] [address] [place] [address] Kristal Solis MD [address] [place] [address] documented as of this encounter Visit Diagnoses Not on filedocumented in this encounter Additional Health Concerns Assessment Noted Time PHQ-9 Depression Total Score: 18 023 9:44 AM EST documented as of this encounter Care Teams Supervisor [employer] Relationship Specialty Start Date End Date Kristal Solis MD [address] [place] [phone] PCP - General Family Medicine 12/27/20 documented as of this encounter
[2025-06-06 11:27] LABS: Anion Gap 14 (12-20); Blood Urea Nitrogen 17 mg/dL (9-16); Calcium 9.6 mg/dL (8.4-10.2); Carbon Dioxide 30 mmol/L (22-29); Chloride 101 mmol/L (96-108); Cholesterol 200 mg/dL (<200); Estimated Glomerular Filt Rate > 60; HDL Cholesterol 43 mg/dL (>40); Potassium 4.1 mmol/L (3.3-5.1); Sodium 141 mmol/L (135-145); Triglycerides 134 mg/dL (<150)
== END 2025-06-06 09:56 | disposition home or self-care (01) ==
LOC: HO.LAB 09:55
PROVIDERS: PCP Family Medicine
DX: R94.39 Abnormal result of other cardiovascular function study (principal); I25.10 Atherosclerotic heart disease of native coronary artery without angina pectoris; Z98.61 Coronary angioplasty status
CPT/HCPCS: 36415; 80048; 80061; 85025; 85610

== ENCOUNTER → 2025-06-08 23:59 | Outpatient (BNV) | payer MEDICAID, SELFPAY | PROVIDERS: PCP Family Medicine; Visit Provider Internal Medicine Cardiovascular Disease | DX: I25.118 Atherosclerotic heart disease of native coronary artery with other forms of angina pectoris (principal) | CPT/HCPCS: 93458; 99152 ==

== ENCOUNTER 2025-06-22 12:41 | Outpatient (AMB) | payer MEDICAID, SELFPAY ==
[2025-06-22 12:46] VITALS: BP 110/60; PULSE 99; BMI 27.6
--- NOTE | 2025-06-22 12:46 | A.OFFVIS_ITS ---
Vital Signs 06/22/25 12:46 Height 6 ft Weight 203 lb 4.259 oz BMI 27.6 BP 110/60 Blood Pressure Location Lt brachial Position Sitting Pulse 99 Pulse Source Pulse Oximeter Intake Visit Reasons: Follow up post cardiac cath Transition Assistant Required: Yes Transition Assistant Services: Transition Assistant Offered & Declined Accompanied by: Self / Same As Patient Allergies No Known Allergies Allergy (Verified 06/22/25 12:50) Medication List - Last Reviewed 06/22/25 by Nestor Rogel CNA albuterol sulfate 90 mcg/actuation (ProAir HFA) 2 puffs PO Q6-8H PRN aspirin 81 mg PO DAILY 90 days atorvastatin 80 mg PO BEDTIME azelastine 2 sprays intranasal BID 30 days evolocumab 140 mg subcut Q2W loratadine 10 mg PO DAILY PRN metoprolol succinate ER 25 mg PO DAILY nitroglycerin (Nitrostat) 0.4 mg sublingual Q5M PRN olmesartan-hydrochlorothiazide 40-12.5 mg 1 tab PO DAILY omeprazole 20 mg PO DAILY sertraline 50 mg PO QAM HPI Comments Details: This is a 59-year-old male patient coming in for a follow-up visit status post cardiac catheterization, accompanied by his . Patient with a history of coronary artery disease status post PCI to his LAD back in 2020, hypertension, and hyperlipidemia. Patient has been having some exertional chest pain and had undergone stress test back in December of 2023 which was abnormal and was suggested for cardiac catheterization however patient never completed this. Given his ongoing symptoms, patient was once again tried for cardiac catheterization and is now status post this. Today, patient is reporting feeling well overall without any cardiac symptoms of exertional chest pain, shortness of breath, palpitations, orthopnea, PND, leg edema, presyncope or syncope. Patient is otherwise reporting compliance with all his medications. [facility] Medical History Abnormal stress test CAD (coronary artery disease) Asthma High blood pressure Surgical History History of cardiac cath Stented coronary artery S/P cardiac cath Family History Father CAD (coronary artery disease) Social History Household Members: Significant Other Housing: Apartment Do you presently have visiting nurse or other home services: No Alcohol intake: current Alcohol intake frequency: holidays/special occasions only Alcohol type: beer Patient Tobacco Use Status: Never used Tobacco Second Hand Smoke Exposure: No service: No Current occupational status: employed Current occupation: housekeeping / right hand dominant Review of Systems Const Denies daytime sleepiness, Denies difficulty sleeping, Denies snoring, Denies stops breathing during sleep and Denies weakness ENT Reports dizziness Card Denies chest pain, Denies rapid heart rate, Denies irregular heart rhythm, Denies claudication, Denies leg edema, Reports lightheadedness, Reports palpitations, Denies dyspnea, Reports dyspnea on exertion, Denies orthopnea, Denies paroxysmal nocturnal dyspnea and Denies slow heart rate Resp Denies cough, Denies dyspnea, Reports dyspnea on exertion and Denies snoring GI Reports no additional complaints, Denies hematochezia, Denies change in stool character and Denies dyspepsia Musc Denies abnormal gait, Denies muscle weakness and Denies numbness Neuro Denies abnormal gait, Reports dizziness, Denies numbness and Denies weakness Endo Reports palpitations Physical Exam Vital Signs: Last Vital Signs Pulse 99 06/22/25 12:46 BP 110/60 06/22/25 12:46 BMI result Body Mass Index 27.6 Const General: cooperative, healthy appearing, comfortable and no acute distress Orientation/consciousness: patient oriented x3 HEENT Head: Yes normal to inspection Neck Neck: Yes normal visual inspection, Yes trachea midline and Yes supple Chest Chest palpation & inspection: normal inspection of the chest Resp Effort & Inspection: normal respiratory effort Auscultation: clear to auscultation bilaterally, no crackles, no rales, no rhonchi and no wheezes Cardio Jugular venous distension: no JVD Palpation: normal PMI Rate: regular rate Rhythm: regular rhythm Heart sounds: S1 normal heart sound present, S2 normal heart sound present, no click, no gallops, no murmurs and no rubs Peripheral pulses: Peripheral pulses 2+ throughout GI Inspection: Yes normal to inspection Palpation (GI): Soft to palpation Auscultation: normal bowel sounds Skin General skin exam: no rashes or lesions noted Neuro General: patient oriented x3 Extrem General: Yes normal to inspection, No no pedal edema and No calf tenderness Psych Appearance: grossly normal Mental Status: mental status grossly normal Speech and movement: Normal speech and movement present Assessment & Plan Assessment & Plan (1) CAD (coronary artery disease): Code(s): I25.10 - Atherosclerotic heart disease of [place] coronary artery without angina pectoris Category: Medical Plan: 12/21/2020- cardiac catheterization showed 95% stenosis in the mid LAD, 40% stenosis in the RCA. 10/27/2023- myocardial perfusion study showed possible ischemia in the basal part of the inferior septum. In the exercise part of the stress, patient achieved 7.0 Mets, 90% MPHR without chest pain and without EKG changes. 06/08/2025-cardiac catheterization with Dr. Mclaughlin at [facility] showed patent proximal LAD with minimal ISR, otherwise no significant disease in the RCA and circumflex. Given above finding and resolution of symptoms, no further indication for testing at this time. Continue lifelong aspirin therapy. No reported signs of bleeding. Most recent LDL elevated at 139. We will add Repatha in addition to the atorvastatin. Ideally, LDL goal less 70. Advised on heart healthy diet and low fatty foods. We will repeat lipid profile and LFTs in 3 months. Right wrist catheterization site is well healed. (2) S/P cardiac cath: Comment: 12/21/20 LM normal, LAD mid 95% stenosis, LCx minimal luminal irregularities, RCA 2nd RPL mid 40% stenosis, 2 CHUCKY to prox/ mid LAD Code(s): Z98.890 - Other specified postprocedural states Category: Surgical Plan: As above. (3) Essential hypertension: Code(s): I10 - Essential (primary) hypertension Category: Medical Plan: Blood pressure today is well-controlled. Continue the current regimen with a blood pressure goal less than 130/80. Advised monitoring blood pressures at home. (4) HLD (hyperlipidemia): Code(s): E78.5 - Hyperlipidemia, unspecified Category: Medical Plan: As above. Advised on heart healthy diet, regular exercise, losing weight, med compliance, and aggressive management of vascular risk factors. Follow up in 6 months, sooner if needed. In the interim, patient will call the office with any concerns or change in symptoms. This note was generated using voice recognition software. While every effort has been made to ensure accuracy and proper boats renter, there may be occasional errors that could affect the content or meaning of the described symptoms. Orders: Orders Liver Panel 3 Months I25.10 - Atherosclerotic heart disease of [place] coronary artery without angina pectoris Lipid Panel 3 Months I25.10 - Atherosclerotic heart disease of [place] coronary artery without angina pectoris Medications: New evolocumab 140 mg subcut Q2W 2 mL 3RF Coding Level of Care Code Est Pt Level 4 (40541) Complex EM visit Add On G2211 Diagnoses CAD (coronary artery disease) I25.10 S/P cardiac cath Z98.890 Essential hypertension I10 HLD (hyperlipidemia) E78.5 Time Spent (min) 33 Comment Time spent in reviewing the chart, test results, assessment, counseling and documentation.
--- OUTSIDE RECORDS SUMMARY | 2025-06-22 15:30 | XMS_ITS | Encounter Summary ---
Author Organization [employer] Address [address] [place] [address] [address] [place] [address] Care Team Providers Care Winding Inspector And Tester Name Role Phone Kristal Solis MD Primary Care Provider [phone] Reason for Visit * Reason Comments Med Refill Encounter Details Date Type Department Care Team (Late Contact Info) Description 01/03/2023 Refill [facility] MEDICINE [address] [place] [address] Kristal Solis MD [address] [place], [place] [phone] Social History Tobacco Use Types Packs/Day Years [...] Department Care Team (Late Contact Info) Description 06/26/2025 11:15 AM EST Office Visit [facility]C MED & PEDS [address] [place], [place] [phone] Kristal Solis MD [address] [place], [place] [phone] documented as of this encounter Visit Diagnoses Not on filedocumented in this encounter Additional Health Concerns Assessment Noted Time PHQ-9 Depression Total Score: 18 023 9:44 AM EST documented as of this encounter Care Teams Winding Inspector And Tester Relationship Specialty Start Date End Date Kristal Solis MD [address] [place] [address] PCP - General Family Medicine 12/27/20 documented as of this encounter
--- OUTSIDE RECORDS SUMMARY | 2025-06-22 15:31 | XMS_ITS | Encounter Summary ---
Author Organization [employer] Address [address] [place] [address] 7[address] [place] [address] Care Team Providers Care Bone Grinder Name Role Phone Kristal Solis MD Primary Care Provider [phone] Reason for Visit * Reason Onset Date Comments Results 06/22/2025 Encounter Details Date Type Department Care Team ([facility] Contact Info) Description 06/22/2025 Results Follow-Up [facility] CHC MED & PEDS [address] [place], [place] [phone] Kristal Solis MD [address] [place] [address] Lipid Panel, Standard Social History Tobacco Use Types Packs/Day Years [...] with others, in a hotel, in a mcc, living outside on the street, on a [...] AM EDT documented as of this encounter Miscellaneous Notes * Telephone Encounter - Tiffany Guidry RN - 06/22/2025 10:56 AM EST TC placed to patient [phone] to inform of below message. Patient verbalized understanding and did not have any further questions/concerns. Patient to f/u PRN. ----- Message from Kristal Solis MD sent at 06/22/2025 9:58 AM EST ----- [facility] Team! Can you please call Jonathon Roman and inform about results? Lipid panel showed improvement. Cont current management Thanks! Kristal ----- Message ----- From: Interface, Lab Results In Sent: 06/06/2025 11:27 AM EST To: Kristal Solis MD documented in this encounter Plan of Treatment Upcoming Encounters Date Type Department Care Team ([facility] st Contact Info) Description 06/26/2025 11:15 AM EST Office Visit [facility] MED & PEDS [address] [place] [address] Kristal Solis MD [address] [place] [address] documented as of this encounter Visit Diagnoses Not on filedocumented in this encounter Additional Health Concerns Assessment Noted Time PHQ-9 Depression Total Score: 18 03/16/ 025 11:23 AM EDT documented as of this encounter Care Teams Bone Grinder Relationship Specialty Start Date End Date Kristal Solis MD [address] [place] [phone] PCP - General Family Medicine 12/27/20 documented as of this encounter
--- OUTSIDE RECORDS SUMMARY | 2025-06-22 15:31 | XMS_ITS | Clinical Summary ---
Author Organization [employer] Address [address] [facility] 7t [place] [address] Care Team Providers Care Childhood Development Teacher Name Role Phone Kristal Solis MD Primary Care Provider [phone] Allergies No known active allergies Medications loratadine [...] EST): [place] app[place] [facility] [place] was asked at work for a [...] Encounters Date Type Department Care Team Description 06/22/2025 Results Follow-Up [facility] MED & PEDS [address] [place] [address] Kristal Solis MD Lipid Panel, Standard 06/16/2025 Patient Outreach [facility] MEDICINE [address] [place] [address] Kristal Solis MD Pre-visit Planning (Pre visit planning LVM ) 06/09/2025 10:30 AM EDT Clinical Support [facility] MED & PEDS [address] [place] [address] Sara Mary RN Primary hypertension 06/09/2025 Travel 06/06/2025 Orders Only GENERIC EXTERNAL DATA DEPARTMENT Provider, Generic External Data 05/26/2025 11:30 AM EDT Clinical Support [facility] MED & PEDS [address] [place] [address] Sara Mary RN Primary hypertension 05/26/2025 Telephone [facility] MED & PEDS [address] [place] [address] Kristal Solis MD 05/26/2025 Travel 04/28/2025 11:15 AM EDT Office Visit [facility] MED & PEDS [address] [place] [address] Kristal Solis MD Primary hypertension (Primary Dx); Screening for colon cancer; Dietary counseling; Exercise counseling; Lumbar back pain; Encounter for immunization; CAD S/P percutaneous coronary angioplasty 04/28/2025 Travel 04/27/2025 Telephone [facility] CHC MED & PEDS [address] [place] [address] Kristal Solis MD chart prep 04/20/2025 Patient Outreach [facility] MEDICINE [address] [place], [place] [phone] Kristal Solis MD Pre-visit Planning (Pre visit planning LVM ) from Last 3 Months Immunizations Immunization Administration [...] with others, in a hotel, in a jail, living outside on the street, on a [...] Sign Reading Time Taken Comments Blood Pressure 120/84 06/09/2025 10:42 AM EDT Pulse 80 06/09/2025 10:42 AM EDT Temperature 36.8 C (98.2 F) 04/28/2025 11:14 AM EDT Respiratory Rate 20 04/28/2025 11:14 AM EDT Oxygen Saturation 98% 04/28/2025 11:14 AM EDT Inhaled Oxygen Concentration - - Weight 92 kg (202 lb 12.8 oz) 06/09/2025 10:42 A M EDT Height 182.9 cm (6') 04/28/2025 11:14 AM EDT Body Mass Index 27.5 04/28/2025 11:14 AM EDT Plan of Treatment Upcoming Encounters Date Type Department Care Team (Late st Contact Info) Description 06/26/2025 11:15 AM EST Office Visit [facility] CHC MED & PEDS [address] [place] [address] Kristal Solis MD [address] [place] [address] Health Maintenance Due Date Last Done Comments [...] 03/16/2025 Tobacco Screening 04/28/2026 04/28/2025 Lipid Panel 06/06/2030 06/06/2025, 08/0 08/2024, 08/06/2022 DTaP/Tdap/Td Vaccines (3 - Td or [...] Procedure Name Priority Date/Time Associated Diagnosis Comments BASIC METABOLIC PANEL Routine 06/06/2025 10:11 AM EDT PROTHROMBIN TIME-INR Routine 06/06/2025 10:11 AM EDT CBC WITH AUTO DIFFERENTIAL Routine 06/06/2025 10:11 AM EDT LIPID PANEL, STANDARD Routine 06/06/2025 10:11 AM EDT CAD S/P percutaneous coronary angioplasty HEPATITIS C AB W/REFL TO HCV RNA, QN, PCR Routine 03/17/2025 7:22 AM EDT Encounter for health-related screening HIV 1/2 ANTIGEN/ANTIBODY, FOURTH GENERATION W/RFL Routine 09/10/2022 8:27 AM EST Unintended weight loss from Last 3 Months or Most Recently Relevant to Health Maintenance Results * (ABNORMAL) CBC auto differential (06/06/2025 10:11 AM EDT) White Blood Count 7.7 4.8 - 10.8 X10*3/uL [facility] Red Blood Count 5.40 4.60 - 5.80 X10*6/uL [facility] Hemoglobin 15.3 14.0 - 18.0 g/dl [facility] Hematocrit 46.9 42.0 - 52.0 % [facility] Mean Corpuscular Volume 86.9 80.0 - 98.0 fL [facility] Mean Corpuscular Hemoglobin 28.3 27.0 - 33.0 pg [facility] Mean Corpuscular HGB Conc 32.6 31.0 - 36.0 g/dl [facility] Red Cell Distribution Width 12.0 11.0 - 16.0 % [facility] Platelet Count 249 160 - 400 X10*3/uL [facility] Mean Platelet Volume 10.5 9.4 - 12.4 fL [facility] Neutrophils Percent Auto 59.7 45 - 73 % [facility] Imm Gran Pct Auto 0.3 0.0 - 0.4 % [facility] Lymphocytes Percent Auto 25.7 20 - 40 % [facility] Monocytes Percent Auto 8.0 2 - 11 % [facility] Eosinophils Percent Auto 5.8(H) 0 - 4 % [facility] Basophils Percent Auto 0.5 0 - 2 % [facility] NRBC Pct Auto 0.0 0.0 - 0.2 /100WBC [facility] Neutrophils Absolute Auto 4.6 2.0 - 8.3 x10*3/uL [facility] Imm Gran Abs Auto 0.02 0.00 - 0.03 X10*3/uL [facility] Lymphocytes Absolute Auto 2.0 1.2 - 4.9 X10*3/uL [facility] Monocytes Absolute Auto 0.6 0.1 - 1.2 X10*3/uL [facility] Eosinophils Absolute Auto 0.5(H) 0.0 - 0.4 X10*3/uL [facility] Basophils Absolute Auto 0.0 0.0 - 0.2 X10*3/uL [facility] NRBC Abs Auto 0.000 0.0 - 0.012 X10*3/uL [facility] 06/06/2025 10:1 1 AM EDT 06/06/2025 10:11 AM EDT us Generic External Data Provider LAB BLOOD ORDERAB LES Final Result [facility] [address] [place] [phone] [phone] * Prothrombin Time-INR (06/06/2025 10:11 AM EDT) Prothrombin Time 11.7 10.9 - 12.4 SEC [facility] INTERNATIONAL NORM RATIO 1.0 0.9 - 1.1 [facility] Comment:INTERNATIONAL NORMAL IZED RATIO (INR) REFERENCE [...] ORDERAB LES Final Result Performing Organization Address City/State/RUST Co de Phone Number [facility] [address] [place] [phone] * (ABNORMAL) Lipid Panel, Standard (06/06/2025 10:11 AM EDT) Triglycerides 134 <150 mg/dL [facility] Comment:Desirable Triglyceri de: less than 150 mg/dLBorderline High Triglyceride 150-199 mg/dLHigh Triglyceride: 200-499 mg/dLVery High Triglyceride: greater than or equal to 5OO mg/dL Cholesterol 200(H) <200 mg/dL [facility] Comment:Desirable Cholestero l: less than 200 mg/dLBorderline High Cholesterol: 200-239 mg/dLHigh Cholesterol: greater than 239 mg/dL LDL Cholesterol Calculated 131(H) <100 mg/dL [facility] Comment:Desirable LDL: less than 100 mg/dLNear Optimal/Above Optimal LDL: 110- 129 mg/dLBorderline High LDL: 130-159 mg/dLHigh LDL: 160-189 mg/dLVery High LDL: greater than or equal to 190 mg/dL HDL Cholesterol 43 >40 mg/dL [facility] Comment:Desirable HDL: great er than 40 mg/dL Note: This HDL assay may give artificially low results in patients with liver disease. Blood Venous blood specimen / Unknown 06/06/2025 10:11 AM EDT 06/06/2025 10:11 AM EDT us Kristal Solis MD LAB BLOOD ORDERABLES Final Re sult Performing Organization Address City/[facility]/ZIP Co de Phone Number [facility] [address] [place] [phone] * (ABNORMAL) Basic Metabolic Panel (06/06/2025 10:11 AM EDT) Sodium 141 135 - 145 mmol/L [facility] Potassium 4.1 3.3 - 5.1 mmol/L [facility] Chloride 101 96 - 108 mmol/L [facility] Carbon Dioxide 30(H) 22 - 29 mmol/L [facility] Anion Gap 14 12 - 20 [facility] Urea Nitrogen (BUN) 17(H) 9 - 16 mg/dL [facility] Creatinine, Serum 1.18 0.5 - 1.4 mg/dL [facility] Estimated Glomerular Filt Rate >60 [facility] Comment:Chronic Kidney Disea se: Estimated GFR < 60 mL/min/1.89k9Olgevb Kidney Disease: Estimated GFR < 15 mL/min/1.73m2 Glucose 109 60 - 115 mg/dL [facility] Calcium 9.6 8.4 - 10.2 mg/dL [facility] 06/06/2025 10:1 1 AM EDT 06/06/2025 10:11 AM EDT us Generic External Data Provider LAB BLOOD ORDERAB LES Final Result Performing Organization Address [facility]/ZIP Co de Phone Number [facility] [address] [place] [phone] * Hepatitis C Antibody with Reflex to HCV, RNA, Quantitative, Real-Time PCR (03/17/2025 7:22 AM EDT) Hepatitis C Antibody Nonreactive Nonreactive [facility] Comment:Antibodies to HCV no t detected; does not exclude early acuteHCV infection. Blood Venous blood specimen / Unknown 03/17/2025 7:22 AM EDT 03/17/2025 7:23 AM EDT Kristal Solis MD LAB BLOOD ORDERABLES Final Re sult Performing Organization Address City/[facility]/ZIP Co de Phone Number [facility] [address] [place] [phone] * HIV-1/2 Antigen and Antibodies, Fourth Generation, with Reflexes (09/10/2022 8:27 AM EST) Pathologist [facility] HIV Antigen/Antibody, 4th Generation NON-REAC TIVE NON-REAC TIVE [facility] Comment: HIV-1 antigen and HIV-1/HIV-2 antibodies [...] purpose. For additional information please refer to http://education.[employer].MeetMe/faq/XFI508 (This link is being provided for informational/ educational purposes only.) The performance of this assay has not been clinically validated in patients less than 2 years old. Blood Venous blood specimen / Unknown 09/10/2022 8:27 AM EST 09/10/2022 8:28 AM EST Narrative [facility] - 09/11/2022 10:49 AM EST FASTING:YES FASTING: YES us Kristal Solis MD LAB BLOOD ORDERABLES Final Re sult [facility] [address] [place] [address], [place] [address] [facility] [address] [place] [address], ([address]) [place] [phone] from Last 3 Months or Most Recently Relevant to Health Maintenance Insurance [facility] C3 Care Teams Childhood Development Teacher Relationship Specialty Start Date End Date Kristal Solis MD [address] [place] [address] PCP - General Family Medicine 12/27/20
--- OUTSIDE RECORDS SUMMARY | 2025-06-22 15:31 | XMS_ITS | Encounter Summary ---
Author Organization [employer] Address [address] [facility] 7t [place] [address] Care Team Providers Care Blender Snuff Name Role Phone Kristal Solis MD Primary Care Provider [phone] Reason for Visit * Reason Comments Med Refill Encounter Details Date Type Department Care Team (Late st Contact Info) Description 07/23/2023 Refill [facility] MEDICINE [address] [place], [place] [phone] Юлия Caldwell MD [address] [place] [address] Social History Tobacco Use Types Packs/Day Years [...] Description 06/26/2025 11:15 AM EST Office Visit [facility] MED & PEDS [address] [place] [address] Kristal Solis MD [address] [place] [address] documented as of this encounter Visit Diagnoses Not on filedocumented in this encounter Additional Health Concerns Assessment Noted Time PHQ-9 Depression Total Score: 18 023 9:44 AM EST documented as of this encounter Care Teams Blender Snuff Relationship Specialty Start Date End Date Kristal Solis MD [address] [place] [address] PCP - General Family Medicine 12/27/20 documented as of this encounter
--- OUTSIDE RECORDS SUMMARY | 2025-06-22 15:31 | XMS_ITS | Encounter Summary ---
Author Organization [employer] Address [address] [facility] 7t [place] [address] Care Team Providers Care Rn Bsn Name Role Phone Kristal Solis MD Primary Care Provider [phone] Reason for Visit * Reason Comments Med Refill Encounter Details Date Type Department Care Team ([facility] st Contact Info) Description 11/22/2024 Refill [facility] CH[facility] MED & PEDS [address] [place], [place] [phone] Kristal Solis MD [address] [place], [place] [phone] Primary hypertension; Gastroesophageal reflux disease, unspecified whether [...] Description 06/26/2025 11:15 AM EST Office Visit [facility] MED & PEDS [address] [place] [address] Kristal Solis MD [address] [place] [address] documented as of this encounter Visit Diagnoses Diagnosis Primary hypertension Unspecified essential hypertension Gastroesophageal reflux disease, unspecified whether esophagitis present documented in this encounter Additional Health Concerns Assessment Noted Time PHQ-9 Depression Total Score: 18 023 9:44 AM EST documented as of this encounter Care Teams Rn Bsn Relationship Specialty Start Date End Date Kristal Solis MD [address] [place] [address] PCP - General Family Medicine 12/27/20 documented as of this encounter
--- OUTSIDE RECORDS SUMMARY | 2025-06-22 15:31 | XMS_ITS | Encounter Summary ---
Author Organization [employer] Address [address] [place] [address] Care Team Providers Care Installer Soft Top Name Role Phone Kristal Solis MD Primary Care Provider [phone] Reason for Visit * Reason Comments Med Refill Encounter Details Date Type Department Care Team (Late st Contact Info) Description 10/25/2024 Refill [facility] [address] [place] [address] Kristal Solis MD [address] [place] [address] Social History Tobacco Use Types Packs/Day Years [...] 11:15 AM EST Office Visit [facility] [address] [place] [address] Kristal Solis MD [address] [place] [address] documented as of this encounter Visit Diagnoses Not on filedocumented in this encounter Additional Health Concerns Assessment Noted Time PHQ-9 Depression Total Score: 18 023 9:44 AM EST documented as of this encounter Care Teams Installer Soft Top Relationship Specialty Start Date End Date Kristal Solis MD [address] [place] [address] PCP - General Family Medicine 12/27/20 documented as of this encounter
== END 2025-06-22 13:14 | disposition home or self-care (01) ==
LOC: HO.HCS 12:41
PROVIDERS: PCP Family Medicine
DX: I25.10 Atherosclerotic heart disease of native coronary artery without angina pectoris (principal); Z98.890 Other specified postprocedural states; I10 Essential (primary) hypertension; E78.5 Hyperlipidemia, unspecified
CPT/HCPCS: 99214

== ENCOUNTER → 2025-06-22 12:41 | Outpatient (BNVA) | payer MEDICAID, SELFPAY | PROVIDERS: PCP Family Medicine | DX: Z98.890 Other specified postprocedural states (principal); I25.10 Atherosclerotic heart disease of native coronary artery without angina pectoris; I10 Essential (primary) hypertension; E78.5 Hyperlipidemia, unspecified | CPT/HCPCS: 99212 ==